=== PATIENT | male | born 1950 | race Hispanic/Latino ===

== ENCOUNTER 2017-01-18 16:25 | Emergency (ER) | payer MEDICARE ==
--- NOTE | 2017-01-18 19:24 | Emergency Department Report ---
ED Lower Extremity HPI - General Chief Complaint: Extremity Injury, Lower Stated Complaint: BLLOD CLOT Time Seen by Provider: 01/18/17 16:58 Source: patient, EMS Mode of arrival: Stretcher Limitations: Physical Limitation - History of Present Illness Initial Comments: Patient is a 66 yr old male who presents to the ED with RLE pain and LLE anterior cellulitis. Pt reports his leg started to hurt for the past few days and he was concerned for a blood clot. Associated LLE cellulitis with mulitiple lesions. Otherwise no fevers, chills, ROMERO, NVD, SOB, hemoptysis, CP, travel, trauma, or sick contacts. MD Complaint: other (R leg calf pain, cellulitis to the left leg) -: Gradual Severity: mild Worsens With: movement - Related Data Home Medications Medication Instructions Recorded Confirmed Last Taken Pravastatin Sodium [Pravastatin] 40 mg PO DAILY 11/08/13 01/18/17 07/05/16 metFORMIN [Glucophage] 500 mg PO BID 11/08/13 01/18/17 07/05/16 Insulin Glargine [Lantus VIAL] 25 unit SUB-Q HS 09/10/16 01/18/17 Unknown Insulin Lispro [HumaLOG VIAL] 0 units SUB-Q TIDAC 09/10/16 01/18/17 Unknown Escitalopram [Lexapro] 10 mg PO DAILY 01/18/17 01/18/17 Unknown busPIRone [Buspar] 10 mg PO BID 01/18/17 01/18/17 Unknown clonazePAM [KlonoPIN] 0.5 mg PO BID PRN 01/18/17 01/18/17 Unknown traZODone [Desyrel] 50 mg PO QHS 01/18/17 01/18/17 Unknown Previous Rx's Medication Instructions Recorded Last Taken Type Sulfamethoxazole/Trimethoprim 1 each PO BID #20 tablet 01/18/17 Unknown Rx [Bactrim DS TAB] Allergies Allergy/AdvReac Type Severity Reaction Status Date / Time vancomycin Allergy Rash Verified 06/27/15 13:20 ED Review of Systems ROS: Stated complaint: BLLOD CLOT Other details as noted in HPI ED Past Medical Hx - Past Medical History Hx Hypertension: Yes Hx CVA: Yes (noted on CAT scan, TIA) Hx Congestive Heart Failure: Yes Hx Diabetes: Yes Hx GERD: Yes Hx Arthritis: Yes Hx Psychiatric Treatment: Yes (depression,anxiety) - Surgical History Hx Open Heart Surgery: No Hx Cholecystectomy: Yes Additional Surgical History: Shoulder surgery; pace maker October 2014 - Social History Smoking Status: Never Smoker Substance Use Type: None - Medications Home Medications: Home Medications Medication Instructions Recorded Confirmed Last Taken Type Pravastatin Sodium [Pravastatin] 40 mg PO DAILY 11/08/13 01/18/17 07/05/16 History metFORMIN [Glucophage] 500 mg PO BID 11/08/13 01/18/17 07/05/16 History Insulin Glargine [Lantus VIAL] 25 unit SUB-Q HS 09/10/16 01/18/17 Unknown History Insulin Lispro [HumaLOG VIAL] 0 units SUB-Q TIDAC 09/10/16 01/18/17 Unknown History Escitalopram [Lexapro] 10 mg PO DAILY 01/18/17 01/18/17 Unknown History Sulfamethoxazole/Trimethoprim 1 each PO BID #20 tablet 01/18/17 Unknown Rx [Bactrim DS TAB] busPIRone [Buspar] 10 mg PO BID 01/18/17 01/18/17 Unknown History clonazePAM [KlonoPIN] 0.5 mg PO BID PRN 01/18/17 01/18/17 Unknown History traZODone [Desyrel] 50 mg PO QHS 01/18/17 01/18/17 Unknown History ED Physical Exam - General Limitations: Physical Limitation General appearance: alert, in no apparent distress - Head Head exam: Present: atraumatic, normocephalic - Eye Eye exam: Present: normal appearance - ENT ENT exam: Present: mucous membranes moist - Neck Neck exam: Present: normal inspection - Respiratory Respiratory exam: Present: normal lung sounds bilaterally. Absent: respiratory distress - Cardiovascular Cardiovascular Exam: Present: regular rate, normal rhythm. Absent: systolic murmur, diastolic murmur, rubs, gallop - GI/Abdominal GI/Abdominal exam: Present: soft, normal bowel sounds - Rectal Rectal exam: Present: deferred - Extremities Exam Extremities exam: Present: normal inspection, tenderness, calf tenderness ( right calf tenderness) - Expanded Lower Extremity Exam Left Hip exam: Present: full ROM. Absent: tenderness Upper Leg exam: Present: normal inspection, full ROM. Absent: tenderness Knee exam: Present: normal inspection, full ROM. Absent: tenderness, swelling Lower Leg exam: Present: full ROM, erythema (Excoriations, warm to touch). Absent: tenderness Ankle exam: Present: normal inspection, full ROM Foot/Toe exam: Present: normal inspection, full ROM Neuro vascular tendon exam: Present: no vascular compromise. Absent: pulse deficit - Neurological Exam Neurological exam: Present: alert, oriented X3 - Skin Skin exam: Present: warm, dry, other (as noted in extremity exam) ED Course Vital Signs 01/18/17 01/18/17 01/18/17 16:41 17:16 17:20 Temperature 98.0 F Pulse Rate 73 Respiratory 18 Rate Blood Pressure 150/81 Blood Pressure 151/70 [Right] O2 Sat by Pulse 100 86 98 Oximetry 01/18/17 01/18/17 01/18/17 17:30 17:40 19:50 Temperature 98 F Pulse Rate 86 Respiratory 18 Rate Blood Pressure 150/81 Blood Pressure 156/75 [Right] O2 Sat by Pulse 82 L 98 97 Oximetry ED Lower Extremity MDM - Radiology Data Radiology results: report reviewed No DVT of the RLE Critical care attestation.: If time is entered above; I have spent that time in minutes in the direct care of this critically ill patient, excluding procedure time. ED Disposition Clinical Impression: Leg pain, Cellulitis, leg Disposition: DISCHARGED TO HOME OR SELFCARE Is pt being admited?: No Does the pt Need Aspirin: No Condition: Stable Instructions: Cellulitis (ED), Arthralgia (ED) Prescriptions: Sulfamethoxazole/Trimethoprim [Bactrim DS TAB] 1 each PO BID #20 tablet Referrals: PRIMARY CARE, [Primary Care Provider] - 3-5 Days Forms: Accompanied Note
[2017-01-18 20:25] VITALS: BP 156/75
--- NOTE | 2017-01-20 08:18 | Vascular Lab Report ---
Right Lower Extremity Venous Duplex Study: Reason for Exam: Right leg swelling. Comments on the Right: All veins visualized are freely compressible without evidence of internal echogenicity. Flow is spontaneous and phasic throughout. No evidence of acute or chronic thrombus is seen in any of the vessels visualized. Varicosities noted in the right lower portion of the lag Comments on the Left: A limited duplex study was done of the proximal veins of the left lower extremity. All veins visualized are freely compressible without evidence of internal echogenicity. Flow is spontaneous and phasic throughout. No evidence of acute or chronic thrombus is seen in any of the vessels visualized. Impression: No evidence of acute or chronic deep venous thrombosis in the right lower extremity right leg varicose veins. Consider workup for venous insufficiency..
== END 2017-01-18 20:05 | disposition home or self-care (01) ==
LOC: ED 16:25
DX: L03.116 Cellulitis of left lower limb (principal); M79.661 Pain in right lower leg; I10 Essential (primary) hypertension; I63.9 Cerebral infarction, unspecified; I50.9 Heart failure, unspecified; E11.9 Type 2 diabetes mellitus without complications; K21.9 Gastro-esophageal reflux disease without esophagitis; M19.90 Unspecified osteoarthritis, unspecified site; F41.9 Anxiety disorder, unspecified; F32.9 Major depressive disorder, single episode, unspecified; Z79.4 Long term (current) use of insulin; Z88.1 Allergy status to other antibiotic agents

== ENCOUNTER 2017-03-15 12:15 | Emergency (ER) | payer MEDICARE ==
[2017-03-15] MEDS ORDERED: NACL 0.9% 1000 ML 1,000 ML IV ONE (12:48)
[2017-03-15 13:48] LABS: Basophils % (Auto) 0.6 % (0.0-1.8); Eosinophils % (Auto) 0.5 % (0.0-4.3); Hematocrit 38.6 % (35.5-45.6); Hemoglobin 12.3 gm/dl (11.8-15.2); Mean Corpuscular HGB Conc 32 % (32-34); Mean Corpuscular Volume 80 fl (84-94); Platelet Count 316 K/mm3 (140-440); Red Blood Count 4.82 M/mm3 (3.65-5.03); Red Cell Distribution Width 16.9 % (13.2-15.2); White Blood Count 11.3 K/mm3 (4.5-11.0)
[2017-03-15 13:51] LABS: Alanine Aminotransferase 10 units/L (7-56); Albumin 3.9 g/dL (3.9-5); Albumin/Globulin Ratio 1.2 %; Alkaline Phosphatase 76 units/L (35-129); Anion Gap 17 mmol/L; BUN/Creatinine Ratio 11.11; Blood Urea Nitrogen 10 mg/dL (9-20); Calcium 8.9 mg/dL (8.4-10.2); Carbon Dioxide 28 mmol/L (22-30); Chloride 95.9 mmol/L (98-107); Glucose 149 mg/dL (75-100); Lipase 101 units/L (13-60); Potassium 3.3 mmol/L (3.6-5.0); Sodium 138 mmol/L (137-145); Total Protein 7.1 g/dL (6.3-8.2)
[2017-03-15 14:16] LABS: INR 1.16 (0.87-1.13)
[2017-03-15 14:17] LABS: Partial Thromboplastin Time 31.5 Sec. (24.2-36.6)
[2017-03-15 14:18] LABS: Mean Corpuscular Hemoglobin 26 pg (28-32)
[2017-03-15 16:03] VITALS: BP 144/81
--- NOTE | 2017-03-15 16:31 | Emergency Department Report ---
ED N/V/D HPI - General Chief complaint: Nausea/Vomiting/Diarrhea Stated complaint: Poss GI Bleed Time Seen by Provider: 03/15/17 15:30 Source: patient Mode of arrival: Ambulatory Limitations: Physical Limitation - History of Present Illness Initial comments: Patient comes in the ER today with complaints of abdominal pain and diarrhea for the past 2-3 weeks. Patient states that he was seen here not long ago and started on Protonix for blood in his stool. The patient states that he has not had any blood in his stool since that time but he continues to have some diarrhea. Patient does state that when he eats the pain seems to get a little bit worse. Patient denies any vomiting. Patient denies any fevers, cough, body aches. Patient does state that occasionally when he tries to void, he feels like he has to have a bowel movement as well. MD complaint: diarrhea - Related Data Home Medications Medication Instructions Recorded Confirmed Last Taken Insulin Glargine [Lantus VIAL] 25 unit SUB-Q HS 09/10/16 02/24/17 Unknown Insulin Lispro [HumaLOG VIAL] 0 units SUB-Q TIDAC 09/10/16 02/24/17 Unknown Escitalopram Oxalate [Lexapro] 1 tab PO QDAY 02/24/17 02/24/17 Unknown Furosemide [Lasix TAB] 20 mg PO QDAY 02/24/17 02/24/17 Unknown Furosemide [Lasix TAB] 20 mg PO QDAY 02/24/17 02/24/17 Unknown Previous Rx's Medication Instructions Recorded Last Taken Type Apixaban [Eliquis] 2.5 mg PO Q12HR #60 tablet 02/27/17 Unknown Rx Aspirin [Adult Low Dose Aspirin EC] 81 mg PO QDAY #30 tablet. 02/27/17 Unknown Rx Carvedilol [Coreg] 25 mg PO BID #60 tablet 02/27/17 Unknown Rx Escitalopram [Lexapro] 20 mg PO DAILY #30 tablet 02/27/17 Unknown Rx Insulin Detemir [Levemir] 25 units SUB-Q QHS #30 units 02/27/17 Unknown Rx Pantoprazole [Protonix TAB] 40 mg PO BID #60 tablet 02/27/17 Unknown Rx Pravastatin Sodium [Pravastatin] 40 mg PO DAILY #30 tablet 02/27/17 Unknown Rx amLODIPine/VALSARTAN [Exforge 1 tab PO QDAY #30 tablet 02/27/17 Unknown Rx 5-160 mg Tablet] busPIRone [Buspar] 10 mg PO TID #90 tablet 02/27/17 Unknown Rx cloNIDine-TTS PATCH [Catapres-Tts 0.2 mg TD We #4 patch 02/27/17 Unknown Rx Patch] clonazePAM [KlonoPIN] 0.5 mg PO BID PRN #60 tablet 02/27/17 Unknown Rx metFORMIN [Glucophage] 500 mg PO BID #60 tablet 02/27/17 Unknown Rx traZODone [Desyrel] 50 mg PO QHS #30 tablet 02/27/17 Unknown Rx Cholestyramine (with Sugar) 4 gm PO QID PRN #40 packet 03/15/17 Unknown Rx [Questran] Ciprofloxacin HCl [Ciprofloxacin 500 mg PO Q12HR #20 tab 03/15/17 Unknown Rx TAB] metroNIDAZOLE [Flagyl] 500 mg PO QID #40 tablet 03/15/17 Unknown Rx Allergies Allergy/AdvReac Type Severity Reaction Status Date / Time vancomycin Allergy Shortness Verified 02/24/17 11:57 of Breath ED Review of Systems ROS: Stated complaint: Poss GI Bleed Other details as noted in HPI Constitutional: denies: chills, fever Eyes: denies: eye pain, eye discharge, vision change ENT: denies: ear pain, throat pain Respiratory: denies: cough, shortness of breath, wheezing Cardiovascular: denies: chest pain, palpitations Endocrine: no symptoms reported Gastrointestinal: abdominal pain, diarrhea. denies: nausea, vomiting, constipation, hematemesis, melena, hematochezia Genitourinary: denies: urgency, dysuria Musculoskeletal: denies: back pain, joint swelling, arthralgia Skin: denies: rash, lesions Neurological: denies: headache, weakness, paresthesias Psychiatric: denies: anxiety, depression Hematological/Lymphatic: denies: easy bleeding, easy bruising ED Past Medical Hx - Past Medical History Previous Medical History?: Yes Hx Hypertension: Yes Hx CVA: Yes (noted on CAT scan, TIA) Hx Congestive Heart Failure: Yes Hx Diabetes: Yes Hx GERD: Yes Hx Arthritis: Yes Hx Psychiatric Treatment: Yes (depression,anxiety) - Surgical History Past Surgical History?: Yes Hx Open Heart Surgery: No Hx Pacemaker: Yes Hx Cholecystectomy: Yes Additional Surgical History: Shoulder surgery; pace maker October 2014 - Social History Smoking Status: Former Smoker Substance Use Type: Prescribed - Medications Home Medications: Home Medications Medication Instructions Recorded Confirmed Last Taken Type Insulin Glargine [Lantus VIAL] 25 unit SUB-Q HS 09/10/16 02/24/17 Unknown History Insulin Lispro [HumaLOG VIAL] 0 units SUB-Q TIDAC 09/10/16 02/24/17 Unknown History Escitalopram Oxalate [Lexapro] 1 tab PO QDAY 02/24/17 02/24/17 Unknown History Furosemide [Lasix TAB] 20 mg PO QDAY 02/24/17 02/24/17 Unknown History Furosemide [Lasix TAB] 20 mg PO QDAY 02/24/17 02/24/17 Unknown History Apixaban [Eliquis] 2.5 mg PO Q12HR #60 tablet 02/27/17 Unknown Rx Aspirin [Adult Low Dose Aspirin EC] 81 mg PO QDAY #30 tablet. 02/27/17 Unknown Rx Carvedilol [Coreg] 25 mg PO BID #60 tablet 02/27/17 Unknown Rx Escitalopram [Lexapro] 20 mg PO DAILY #30 tablet 02/27/17 Unknown Rx Insulin Detemir [Levemir] 25 units SUB-Q QHS #30 units 02/27/17 Unknown Rx Pantoprazole [Protonix TAB] 40 mg PO BID #60 tablet 02/27/17 Unknown Rx Pravastatin Sodium [Pravastatin] 40 mg PO DAILY #30 tablet 02/27/17 Unknown Rx amLODIPine/VALSARTAN [Exforge 1 tab PO QDAY #30 tablet 02/27/17 Unknown Rx 5-160 mg Tablet] busPIRone [Buspar] 10 mg PO TID #90 tablet 02/27/17 Unknown Rx cloNIDine-TTS PATCH [Catapres-Tts 0.2 mg TD We #4 patch 02/27/17 Unknown Rx Patch] clonazePAM [KlonoPIN] 0.5 mg PO BID PRN #60 tablet 02/27/17 Unknown Rx metFORMIN [Glucophage] 500 mg PO BID #60 tablet 02/27/17 Unknown Rx traZODone [Desyrel] 50 mg PO QHS #30 tablet 02/27/17 Unknown Rx Cholestyramine (with Sugar) 4 gm PO QID PRN #40 packet 03/15/17 Unknown Rx [Questran] Ciprofloxacin HCl [Ciprofloxacin 500 mg PO Q12HR #20 tab 03/15/17 Unknown Rx TAB] metroNIDAZOLE [Flagyl] 500 mg PO QID #40 tablet 03/15/17 Unknown Rx ED Physical Exam - General Limitations: Physical Limitation General appearance: alert, in no apparent distress - Head Head exam: Present: atraumatic, normocephalic - Eye Eye exam: Present: normal appearance - ENT ENT exam: Present: mucous membranes moist - Neck Neck exam: Present: normal inspection - Respiratory Respiratory exam: Present: normal lung sounds bilaterally. Absent: respiratory distress - Cardiovascular Cardiovascular Exam: Present: regular rate, normal rhythm. Absent: systolic murmur, diastolic murmur, rubs, gallop - GI/Abdominal GI/Abdominal exam: Present: soft, tenderness (left upper and lower quadrant), normal bowel sounds, other (truncal obesity). Absent: distended, guarding, rebound - Rectal Rectal exam: Present: deferred - Extremities Exam Extremities exam: Present: normal inspection - Back Exam Back exam: Present: normal inspection - Neurological Exam Neurological exam: Present: alert, oriented X3, CN II-XII intact - Psychiatric Psychiatric exam: Present: normal affect, normal mood - Skin Skin exam: Present: warm, dry, intact, normal color. Absent: rash ED Course Vital Signs 03/15/17 03/15/17 03/15/17 12:43 16:02 16:03 Temperature 98.2 F 98.4 F Pulse Rate 82 83 Respiratory 20 12 13 Rate Blood Pressure 137/82 Blood Pressure 144/81 [Left] O2 Sat by Pulse 97 97 97 Oximetry ED Medical Decision Making - Lab Data Result diagrams: 03/15/17 13:13 03/15/17 13:13 Lab Results 03/15/17 03/15/17 03/15/17 Range/Units 13:11 13:13 13:13 WBC 11.3 H (4.5-11.0) K/mm3 RBC 4.82 (3.65-5.03) M/mm3 Hgb 12.3 (11.8-15.2) gm/dl Hct 38.6 (35.5-45.6) % MCV 80 L (84-94) fl MCH 26 L (28-32) pg MCHC 32 (32-34) % RDW 16.9 H (13.2-15.2) % Plt Count 316 (140-440) K/mm3 Lymph % (Auto) 15.3 (13.4-35.0) % Conway % (Auto) 9.2 H (0.0-7.3) % Eos % (Auto) 0.5 (0.0-4.3) % Baso % (Auto) 0.6 (0.0-1.8) % Lymph # 1.7 (1.2-5.4) K/mm3 Conway # 1.0 H (0.0-0.8) K/mm3 Eos # 0.1 (0.0-0.4) K/mm3 Baso # 0.1 (0.0-0.1) K/mm3 Seg Neutrophils % 74.4 H (40.0-70.0) % Seg Neutrophils # 8.4 H (1.8-7.7) K/mm3 PT 14.7 (12.2-14.9) Sec. INR 1.16 H (0.87-1.13) APTT 31.5 (24.2-36.6) Sec. Sodium (137-145) mmol/L Potassium (3.6-5.0) mmol/L Chloride (98-107) mmol/L Carbon Dioxide (22-30) mmol/L Anion Gap mmol/L BUN (9-20) mg/dL Creatinine (0.8-1.5) mg/dL Estimated GFR ml/min BUN/Creatinine Ratio % Glucose (75-100) mg/dL Calcium (8.4-10.2) mg/dL Total Bilirubin (0.1-1.2) mg/dL AST (5-40) units/L ALT (7-56) units/L Alkaline Phosphatase (35-129) units/L Total Protein (6.3-8.2) g/dL Albumin (3.9-5) g/dL Albumin/Globulin Ratio % Lipase (13-60) units/L Blood Type A NEGATIVE Antibody Screen TNR DEBBIE Antibody Screen Negative 03/15/17 Range/Units 13:13 WBC (4.5-11.0) K/mm3 RBC (3.65-5.03) M/mm3 Hgb (11.8-15.2) gm/dl Hct (35.5-45.6) % MCV (84-94) fl MCH (28-32) pg MCHC (32-34) % RDW (13.2-15.2) % Plt Count (140-440) K/mm3 Lymph % (Auto) (13.4-35.0) % Conway % (Auto) (0.0-7.3) % Eos % (Auto) (0.0-4.3) % Baso % (Auto) (0.0-1.8) % Lymph # (1.2-5.4) K/mm3 Conway # (0.0-0.8) K/mm3 Eos # (0.0-0.4) K/mm3 Baso # (0.0-0.1) K/mm3 Seg Neutrophils % (40.0-70.0) % Seg Neutrophils # (1.8-7.7) K/mm3 PT (12.2-14.9) Sec. INR (0.87-1.13) APTT (24.2-36.6) Sec. Sodium 138 (137-145) mmol/L Potassium 3.3 L (3.6-5.0) mmol/L Chloride 95.9 L (98-107) mmol/L Carbon Dioxide 28 (22-30) mmol/L Anion Gap 17 mmol/L BUN 10 (9-20) mg/dL Creatinine 0.9 (0.8-1.5) mg/dL Estimated GFR > 60 ml/min BUN/Creatinine Ratio 11.11 % Glucose 149 H (75-100) mg/dL Calcium 8.9 (8.4-10.2) mg/dL Total Bilirubin 0.60 (0.1-1.2) mg/dL AST 13 (5-40) units/L ALT 10 (7-56) units/L Alkaline Phosphatase 76 (35-129) units/L Total Protein 7.1 (6.3-8.2) g/dL Albumin 3.9 (3.9-5) g/dL Albumin/Globulin Ratio 1.2 % Lipase 101 H (13-60) units/L Blood Type Antibody Screen DEBBIE Antibody Screen - Radiology Data Radiology results: report reviewed Radiologist's interpretation of CT of the abdomen and pelvis without contrast: Acute diverticulitis along mid-to distal descending colon and proximal to mid sigmoid without perforation or abscess. Grossly unremarkable unenhanced liver, spleen, pancreas, adrenals, non-aneurysmal abdominal aorta with atherosclerotic calcifications. Normal appendix and no ascites or size significant adenopathy. - Medical Decision Making Patient is nontoxic and hemodynamically stable. Lab results as well as CT imaging reviewed and discussed the patient room. I informed patient that we will start him on medications appropriately for acute diverticulitis. I will also prescribe him some Questran to help with the diarrhea. However encouraged patient to follow up with his inspector screen printing to recheck labs and ensure resolution of symptoms. Patient is in agreement with treatment plan and patient is stable for discharge. Critical care attestation.: If time is entered above; I have spent that time in minutes in the direct care of this critically ill patient, excluding procedure time. ED Disposition Clinical Impression: Diarrhea, Acute diverticulitis Disposition: DISCHARGED TO HOME OR SELFCARE Is pt being admited?: No Does the pt Need Aspirin: No Condition: Good Instructions: Diverticulitis (ED), Diverticulitis Diet (ED) Prescriptions: Cholestyramine (with Sugar) [Questran] 4 gm PO QID PRN #40 packet PRN Reason: Diarrhea Ciprofloxacin HCl [Ciprofloxacin TAB] 500 mg PO Q12HR #20 tab metroNIDAZOLE [Flagyl] 500 mg PO QID #40 tablet Referrals: ROBERT ARMENTA MD [Primary Care Provider] - 3-5 Days inspector screen printing, your [Other] - 3-5 Days Time of Disposition: 17:02
--- NOTE | 2017-03-15 16:34 | Cat Scan Report ---
CT ABDOMEN AND PELVIS WITHOUT CONTRAST INDICATION: Abdominal pain, diarrhea. COMPARISON: None similar. FINDINGS: Noncontrast abdomen and pelvis CT performed. LUNG BASES: Top normal heart size. Cardiac pacemaker lead artifacts. Coronary calcifications. Right hemidiaphragm mildly elevated. Slight distal esophageal prominence. ABDOMEN: Please note that sensitivity to detect small visceral lesions is limited due to the absence of intravenous or oral contrast. Cholecystectomy clips. Grossly unremarkable unenhanced liver, spleen, pancreas, adrenals, nonaneurysmal abdominal aorta with atherosclerotic aortoiliac calcifications, IVC and non-hydronephrotic kidneys. No ascites or size significant adenopathy. Nonopacified GI tract evaluation limited, though grossly nonobstructive. Normal appendix. Usual colonic stool. Numerous diverticula noted from about the mid descending colon to the mid sigmoid with surrounding fat stranding along this extent. PELVIS: Rectosigmoid liquid stool. Small prostatic calcifications. Otherwise grossly unremarkable unenhanced urinary bladder, seminal vesicles and the prostate. No free fluid or significant adenopathy. Small bilateral fat-containing inguinal hernias measuring 2 cm. Demineralized bones with multilevel spinal degenerative changes, including spurring, Schmorl's nodes and disc degeneration. Bilateral hip degenerative changes as well. CONCLUSION: 1. Acute diverticulitis along mid to distal descending colon and proximal to mid sigmoid without perforation or abscess, as described. 2. Other incidental findings, including cardiac pacemaker and cholecystectomy, amongst others, as above. Thank you for the opportunity to participate in this patient's care.
== END 2017-03-15 17:29 | disposition home or self-care (01) ==
LOC: ED 12:15
DX: K57.92 Diverticulitis of intestine, part unspecified, without perforation or abscess without bleeding (principal); R19.7 Diarrhea, unspecified; I10 Essential (primary) hypertension; I63.9 Cerebral infarction, unspecified; I50.9 Heart failure, unspecified; E11.9 Type 2 diabetes mellitus without complications; K21.9 Gastro-esophageal reflux disease without esophagitis; M19.90 Unspecified osteoarthritis, unspecified site; Z87.891 Personal history of nicotine dependence; Z79.4 Long term (current) use of insulin; Z79.82 Long term (current) use of aspirin; Z88.1 Allergy status to other antibiotic agents
CPT/HCPCS: 36415; 74176; 80053; 83690; 85025; 85610; 85730; 86850; 86900; 86901; 93005; 93010

== ENCOUNTER 2017-05-24 12:57 | Emergency (ER) | payer MEDICARE ==
[2017-05-24 13:10] VITALS: BP 168/86
[2017-05-24 16:33] LABS: Basophils % (Auto) 0.8 % (0.0-1.8); Eosinophils % (Auto) 1.7 % (0.0-4.3); Hematocrit 39.5 % (35.5-45.6); Mean Corpuscular HGB Conc 33 % (32-34); Mean Corpuscular Hemoglobin 26 pg (28-32); Mean Corpuscular Volume 79 fl (84-94); Platelet Count 232 K/mm3 (140-440); Red Blood Count 4.98 M/mm3 (3.65-5.03); Red Cell Distribution Width 17.3 % (13.2-15.2); White Blood Count 8.7 K/mm3 (4.5-11.0)
--- NOTE | 2017-05-24 16:36 | Emergency Department Report ---
ED Extremity Problem HPI - General Chief complaint: Medical Clearance Stated complaint: MEDICAL CLEARENCE Time Seen by Provider: 05/24/17 15:20 Source: patient, EMS Mode of arrival: Stretcher Limitations: Physical Limitation - History of Present Illness Initial comments: 66-year-old male past medical history recurrent cellulitis right lower extremity CHF hypertension, diabetes DMt2, history of CVA, GERD presents with complaint of right lower extremity pain and swelling. Patient states that he was sent from an current hospital for medical clearance for possible cellulitis of right lower extremity MD Complaint: extremity pain, extremity swelling - Related Data Home Medications Medication Instructions Recorded Confirmed Last Taken Insulin Glargine [Lantus VIAL] 25 unit SUB-Q HS 09/10/16 02/24/17 Unknown Insulin Lispro [HumaLOG VIAL] 0 units SUB-Q TIDAC 09/10/16 02/24/17 Unknown Escitalopram Oxalate [Lexapro] 1 tab PO QDAY 02/24/17 02/24/17 Unknown Furosemide [Lasix TAB] 20 mg PO QDAY 02/24/17 02/24/17 Unknown Furosemide [Lasix TAB] 20 mg PO QDAY 02/24/17 02/24/17 Unknown Previous Rx's Medication Instructions Recorded Last Taken Type Apixaban [Eliquis] 2.5 mg PO Q12HR #60 tablet 02/27/17 Unknown Rx Aspirin [Adult Low Dose Aspirin EC] 81 mg PO QDAY #30 tablet. 02/27/17 Unknown Rx Carvedilol [Coreg] 25 mg PO BID #60 tablet 02/27/17 Unknown Rx Escitalopram [Lexapro] 20 mg PO DAILY #30 tablet 02/27/17 Unknown Rx Insulin Detemir [Levemir] 25 units SUB-Q QHS #30 units 02/27/17 Unknown Rx Pantoprazole [Protonix TAB] 40 mg PO BID #60 tablet 02/27/17 Unknown Rx Pravastatin Sodium [Pravastatin] 40 mg PO DAILY #30 tablet 02/27/17 Unknown Rx amLODIPine/VALSARTAN [Exforge 1 tab PO QDAY #30 tablet 02/27/17 Unknown Rx 5-160 mg Tablet] busPIRone [Buspar] 10 mg PO TID #90 tablet 02/27/17 Unknown Rx cloNIDine-TTS PATCH [Catapres-Tts 0.2 mg TD We #4 patch 02/27/17 Unknown Rx Patch] clonazePAM [KlonoPIN] 0.5 mg PO BID PRN #60 tablet 02/27/17 Unknown Rx metFORMIN [Glucophage] 500 mg PO BID #60 tablet 02/27/17 Unknown Rx traZODone [Desyrel] 50 mg PO QHS #30 tablet 02/27/17 Unknown Rx Cholestyramine (with Sugar) 4 gm PO QID PRN #40 packet 03/15/17 Unknown Rx [Questran] Ciprofloxacin HCl [Ciprofloxacin 500 mg PO Q12HR #20 tab 03/15/17 Unknown Rx TAB] metroNIDAZOLE [Flagyl] 500 mg PO QID #40 tablet 03/15/17 Unknown Rx Clindamycin [Clindamycin CAP] 300 mg PO Q6H #28 capsule 05/24/17 Unknown Rx Compression Socks, Medium [Futuro 1 each MC QDAY #1 pack 05/24/17 Unknown Rx Restoring] Allergies Allergy/AdvReac Type Severity Reaction Status Date / Time vancomycin Allergy Shortness Verified 05/24/17 13:06 of Breath ED Review of Systems ROS: Stated complaint: MEDICAL CLEARENCE Other details as noted in HPI ED Past Medical Hx - Past Medical History Hx Hypertension: Yes Hx CVA: Yes (noted on CAT scan, TIA) Hx Congestive Heart Failure: Yes Hx Diabetes: Yes Hx GERD: Yes Hx Arthritis: Yes Hx Psychiatric Treatment: Yes (depression,anxiety) - Surgical History Hx Open Heart Surgery: No Hx Pacemaker: Yes Hx Cholecystectomy: Yes Additional Surgical History: Shoulder surgery; pace maker October 2014 - Social History Smoking Status: Never Smoker Substance Use Type: None - Medications Home Medications: Home Medications Medication Instructions Recorded Confirmed Last Taken Type Insulin Glargine [Lantus VIAL] 25 unit SUB-Q HS 09/10/16 02/24/17 Unknown History Insulin Lispro [HumaLOG VIAL] 0 units SUB-Q TIDAC 09/10/16 02/24/17 Unknown History Escitalopram Oxalate [Lexapro] 1 tab PO QDAY 02/24/17 02/24/17 Unknown History Furosemide [Lasix TAB] 20 mg PO QDAY 02/24/17 02/24/17 Unknown History Furosemide [Lasix TAB] 20 mg PO QDAY 02/24/17 02/24/17 Unknown History Apixaban [Eliquis] 2.5 mg PO Q12HR #60 tablet 02/27/17 Unknown Rx Aspirin [Adult Low Dose Aspirin EC] 81 mg PO QDAY #30 tablet. 02/27/17 Unknown Rx Carvedilol [Coreg] 25 mg PO BID #60 tablet 02/27/17 Unknown Rx Escitalopram [Lexapro] 20 mg PO DAILY #30 tablet 02/27/17 Unknown Rx Insulin Detemir [Levemir] 25 units SUB-Q QHS #30 units 02/27/17 Unknown Rx Pantoprazole [Protonix TAB] 40 mg PO BID #60 tablet 02/27/17 Unknown Rx Pravastatin Sodium [Pravastatin] 40 mg PO DAILY #30 tablet 02/27/17 Unknown Rx amLODIPine/VALSARTAN [Exforge 1 tab PO QDAY #30 tablet 02/27/17 Unknown Rx 5-160 mg Tablet] busPIRone [Buspar] 10 mg PO TID #90 tablet 02/27/17 Unknown Rx cloNIDine-TTS PATCH [Catapres-Tts 0.2 mg TD We #4 patch 02/27/17 Unknown Rx Patch] clonazePAM [KlonoPIN] 0.5 mg PO BID PRN #60 tablet 02/27/17 Unknown Rx metFORMIN [Glucophage] 500 mg PO BID #60 tablet 02/27/17 Unknown Rx traZODone [Desyrel] 50 mg PO QHS #30 tablet 02/27/17 Unknown Rx Cholestyramine (with Sugar) 4 gm PO QID PRN #40 packet 03/15/17 Unknown Rx [Questran] Ciprofloxacin HCl [Ciprofloxacin 500 mg PO Q12HR #20 tab 03/15/17 Unknown Rx TAB] metroNIDAZOLE [Flagyl] 500 mg PO QID #40 tablet 03/15/17 Unknown Rx Clindamycin [Clindamycin CAP] 300 mg PO Q6H #28 capsule 05/24/17 Unknown Rx Compression Socks, Medium [Futuro 1 each MC QDAY #1 pack 05/24/17 Unknown Rx Restoring] ED Physical Exam - General Limitations: Physical Limitation General appearance: alert, in no apparent distress - Head Head exam: Present: atraumatic, normocephalic - Eye Eye exam: Present: normal appearance, PERRL, EOMI - ENT ENT exam: Present: mucous membranes moist - Neck Neck exam: Present: normal inspection, full ROM - Respiratory Respiratory exam: Present: normal lung sounds bilaterally. Absent: respiratory distress - Cardiovascular Cardiovascular Exam: Present: regular rate, normal rhythm. Absent: systolic murmur, diastolic murmur, rubs, gallop - GI/Abdominal GI/Abdominal exam: Present: soft, normal bowel sounds - Rectal Rectal exam: Present: deferred - Extremities Exam Extremities exam: Present: normal inspection, full ROM - Back Exam Back exam: Present: normal inspection - Neurological Exam Neurological exam: Present: alert, oriented X3, CN II-XII intact, normal gait - Psychiatric Psychiatric exam: Present: normal affect, normal mood - Skin Skin exam: Present: warm, dry, intact, normal color. Absent: rash ED Course Vital Signs 05/24/17 13:06 Temperature 98.4 F Pulse Rate 70 Respiratory 18 Rate Blood Pressure 168/86 O2 Sat by Pulse 100 Oximetry ED Medical Decision Making - Lab Data Result diagrams: 05/24/17 16:06 05/24/17 16:06 - Medical Decision Making A/P: Right lower extremity cellulitis, venous stasis dermatitis 1-labs unremarkable, venous duplex shows no DVT, bedside arterial doppler pt has strong dorsalis pedis and posterior tibial pulses, strong to palpation 2-case discussed with Dr. Salazar 3-will place patient on course of clindamycin 300mg 4 times a day 7 days 4-borders of cellulitis marked. I advised patient to return to the ED in 48-72 hours if he experiences fevers chills worsened or progressive erythema of leg beyond the marked borders. She stated that he understood my instructions Critical care attestation.: If time is entered above; I have spent that time in minutes in the direct care of this critically ill patient, excluding procedure time. ED Disposition Clinical Impression: Cellulitis of right lower extremity, Venous stasis dermatitis of right lower extremity Disposition: DC-01 TO HOME OR SELFCARE Is pt being admited?: No Does the pt Need Aspirin: No Condition: Stable Instructions: Cellulitis (ED), Peripheral Vascular Disorders (ED) Additional Instructions: Patient can return to [place] facility must take antibiotics and patient given precautions to return to the ED if cellulitis worsens despite use of antibiotics or if he develops fevers and chills. Prescriptions: Clindamycin [Clindamycin CAP] 300 mg PO Q6H #28 capsule Compression Socks, Medium [Futuro Restoring] 1 each MC QDAY #1 pack Referrals: COLLEEN HAQ MD [Staff Physician] - 3-5 Days Time of Disposition: 18:47
[2017-05-24 16:38] LABS: Alanine Aminotransferase 13 units/L (7-56); Albumin/Globulin Ratio 1.1 %; Alkaline Phosphatase 82 units/L (35-129); Total Protein 7.5 g/dL (6.3-8.2)
[2017-05-24 16:41] LABS: Bilirubin,Direct < 0.2 mg/dL (0-0.2); Bilirubin,Indirect 0.6 mg/dL
[2017-05-24 16:42] LABS: Anion Gap 19 mmol/L; BUN/Creatinine Ratio 18.75; Blood Urea Nitrogen 15 mg/dL (9-20); Calcium 8.7 mg/dL (8.4-10.2); Carbon Dioxide 27 mmol/L (22-30); Chloride 95.1 mmol/L (98-107); Glucose 204 mg/dL (75-100); Potassium 4.1 mmol/L (3.6-5.0); Sodium 137 mmol/L (137-145)
[2017-05-24 16:46] LABS: INR 1.06 (0.87-1.13); Partial Thromboplastin Time 37.9 Sec. (24.2-36.6)
[2017-05-24 17:01] LABS: C-Reactive Protein 1.1 mg/dL (0.00-1.30)
[2017-05-24 17:27] LABS: Erythrocyte Sedimentation Rate 12 mm/Hr (0-20)
[2017-05-24] MEDS ORDERED: CLEOCIN PO ONE (17:52)
--- NOTE | 2017-05-24 18:44 | XRay Report ---
FINAL REPORT EXAM: XR TIBIA FIBULA 2V RT HISTORY: pain and swelling OF RT TIB/FIB TECHNIQUE: AP and lateral views of the right tibia and fibula PRIORS: None. FINDINGS: There is no evidence for acute fracture or dislocation. No soft tissue swelling or radiopaque foreign bodies are seen. Bony mineralization is normal and joint spaces are maintained. Large bony spurs off the plantar and posterior aspects of the calcaneus is seen. IMPRESSION: No acute bony or soft tissue abnormality noted..
--- NOTE | 2017-05-25 16:02 | Vascular Lab Report ---
Right Lower Extremity Venous Duplex Study: Reason for Exam: Swelling of the right lower extremity. Comments on the Right: All veins visualized are freely compressible without evidence of internal echogenicity. Flow is spontaneous and phasic throughout. No evidence of acute or chronic thrombus is seen in any of the vessels visualized. Comments on the Left: A limited duplex study was done of the proximal veins of the left lower extremity. All veins visualized are freely compressible without evidence of internal echogenicity. Flow is spontaneous and phasic throughout. No evidence of acute or chronic thrombus is seen in any of the vessels visualized. Impression: No evidence of acute or chronic deep venous thrombosis in the right lower extremity.
== END 2017-05-24 19:06 | disposition home or self-care (01) ==
LOC: ED 12:57
DX: L03.115 Cellulitis of right lower limb (principal); I87.8 Other specified disorders of veins; I10 Essential (primary) hypertension; E11.9 Type 2 diabetes mellitus without complications; K21.9 Gastro-esophageal reflux disease without esophagitis; M19.90 Unspecified osteoarthritis, unspecified site; Z86.73 Personal history of transient ischemic attack (TIA), and cerebral infarction without residual deficits; Z79.4 Long term (current) use of insulin; Z88.1 Allergy status to other antibiotic agents; Z95.0 Presence of cardiac pacemaker
CPT/HCPCS: 36415; 80048; 80074; 82140; 82550; 82962; 85025; 85610; 85652; 85730; 86140; 99285

== ENCOUNTER 2017-06-16 15:01 | Emergency (ER) | payer MEDICARE ==
[2017-06-16 15:29] VITALS: BP 151/83
[2017-06-16 16:02] LABS: Basophils % (Auto) 0.9 % (0.0-1.8); Eosinophils % (Auto) 4.2 % (0.0-4.3); Hemoglobin 12.5 gm/dl (11.8-15.2); Mean Corpuscular HGB Conc 33 % (32-34); Mean Corpuscular Hemoglobin 27 pg (28-32); Mean Corpuscular Volume 81 fl (84-94); Platelet Count 233 K/mm3 (140-440); Red Blood Count 4.68 M/mm3 (3.65-5.03); Red Cell Distribution Width 17.6 % (13.2-15.2); White Blood Count 9.4 K/mm3 (4.5-11.0)
[2017-06-16 16:12] LABS: INR 1.06 (0.87-1.13); Partial Thromboplastin Time 36.5 Sec. (24.2-36.6)
== END 2017-06-16 21:45 | disposition left against medical advice (07) ==
LOC: ED 15:01
DX: R04.0 Epistaxis (principal); I50.9 Heart failure, unspecified; E11.9 Type 2 diabetes mellitus without complications; I10 Essential (primary) hypertension; K21.9 Gastro-esophageal reflux disease without esophagitis; F32.9 Major depressive disorder, single episode, unspecified; F41.9 Anxiety disorder, unspecified; Z86.73 Personal history of transient ischemic attack (TIA), and cerebral infarction without residual deficits; Z88.1 Allergy status to other antibiotic agents; Z87.891 Personal history of nicotine dependence; Z53.21 Procedure and treatment not carried out due to patient leaving prior to being seen by health care provider
CPT/HCPCS: 36415; 85025; 85610; 85730

== ENCOUNTER 2017-06-22 09:26 | Emergency (ER) | payer MEDICARE ==
--- NOTE | 2017-06-22 10:51 | Emergency Department Report ---
Chief Complaint: Allergic Reaction Stated Complaint: ALLERGIC REACTION Time Seen by Provider: 06/22/17 10:46 - HPI History of Present Illness: PT c/o itching x 1 week. PT states he is scratching so hard, he is making himself bleed. PT states he does not know what he is allergic to. PT states he did recently change his laundry detergent but he changed back and he is still itching. - ROS Review of Systems: + itching no new swelling to legs - Exam Physical Exam: obese male, steady gait. RLE with edema and erythema purpura noted to bue MSE screening note: Focused history and physical exam performed. Due to findings the following was ordered: labs ED Disposition for MSE Condition: Stable
[2017-06-22 12:14] LABS: Basophils % (Auto) 0.6 % (0.0-1.8); Eosinophils % (Auto) 5.3 % (0.0-4.3); Hematocrit 37.1 % (35.5-45.6); Hemoglobin 12.2 gm/dl (11.8-15.2); Mean Corpuscular HGB Conc 33 % (32-34); Mean Corpuscular Hemoglobin 27 pg (28-32); Mean Corpuscular Volume 81 fl (84-94); Platelet Count 265 K/mm3 (140-440); Red Blood Count 4.58 M/mm3 (3.65-5.03); Red Cell Distribution Width 17.6 % (13.2-15.2); White Blood Count 10.9 K/mm3 (4.5-11.0)
[2017-06-22 12:28] LABS: INR 1.17 (0.87-1.13)
[2017-06-22 12:29] LABS: Partial Thromboplastin Time 37.2 Sec. (24.2-36.6)
[2017-06-22 12:31] LABS: Alanine Aminotransferase 12 units/L (7-56); Albumin 3.7 g/dL (3.9-5); Albumin/Globulin Ratio 1.1 %; Alkaline Phosphatase 85 units/L (35-129); Anion Gap 17 mmol/L; BUN/Creatinine Ratio 23.75; Blood Urea Nitrogen 19 mg/dL (9-20); Calcium 8.6 mg/dL (8.4-10.2); Carbon Dioxide 27 mmol/L (22-30); Chloride 94.3 mmol/L (98-107); Glucose 175 mg/dL (75-100); Potassium 3.6 mmol/L (3.6-5.0); Sodium 135 mmol/L (137-145); Total Protein 7.2 g/dL (6.3-8.2)
[2017-06-22] MEDS ORDERED: ATARAX PO ONE (13:34)
[2017-06-22] MEDS ORDERED: PEPCID PO ONE (13:35)
[2017-06-22 16:01] VITALS: BP 160/75
[2017-06-22 16:37] LABS: Basophils % (Auto) 0.5 % (0.0-1.8); Eosinophils % (Auto) 4.7 % (0.0-4.3); Hematocrit 35.1 % (35.5-45.6); Hemoglobin 11.6 gm/dl (11.8-15.2); Mean Corpuscular HGB Conc 33 % (32-34); Mean Corpuscular Hemoglobin 27 pg (28-32); Mean Corpuscular Volume 81 fl (84-94); Platelet Count 252 K/mm3 (140-440); Red Blood Count 4.35 M/mm3 (3.65-5.03); Red Cell Distribution Width 17.4 % (13.2-15.2); White Blood Count 10.3 K/mm3 (4.5-11.0)
--- NOTE | 2017-06-22 17:47 | Emergency Department Report ---
ED Rash HPI - HPI Chief Complaint: Skin Rash Stated Complaint: ALLERGIC REACTION Time Seen by Provider: 06/22/17 10:46 Duration: reports 7 days ago. Location: Upper Extremities, Lower Extremities Suspected Cause: Unknown (history of eliquis. Reports episodes of nose bleeding as well) Rash Symptoms: Yes Itching, No Facial Swelling, No Tongue/Oral Swelling, No Breathing Difficulties, No Choking Sensation, No Wheezing/Dyspnea, No Peeling, No Blistering, No Fever, No Lightheaded, No Malaise, No Myalgias Severity: mild ED Review of Systems ROS: Stated complaint: ALLERGIC REACTION Other details as noted in HPI Constitutional: denies: chills, diaphoresis, fever, malaise, weakness Eyes: denies: eye pain, eye discharge, vision change Respiratory: denies: cough, orthopnea, shortness of breath, SOB with exertion, SOB at rest, stridor, wheezing Cardiovascular: denies: chest pain, palpitations, dyspnea on exertion, orthopnea , edema, syncope, paroxysmal nocturnal dyspnea Gastrointestinal: denies: abdominal pain, nausea, vomiting, diarrhea, constipation, hematemesis, melena, hematochezia Genitourinary: denies: urgency, dysuria, frequency Musculoskeletal: denies: back pain, joint swelling, myalgia Skin: rash Neurological: denies: headache, weakness, numbness, paresthesias, confusion, abnormal gait, vertigo Psychiatric: denies: homicidal thoughts, suicidal thoughts ED Past Medical Hx - Past Medical History Hx Hypertension: Yes Hx CVA: Yes (noted on CAT scan, TIA) Hx Congestive Heart Failure: Yes Hx Diabetes: Yes Hx GERD: Yes Hx Arthritis: Yes Hx Psychiatric Treatment: Yes (depression,anxiety) - Surgical History Hx Open Heart Surgery: No Hx Pacemaker: Yes Hx Cholecystectomy: Yes Additional Surgical History: Shoulder surgery; pace maker October 2014 - Social History Smoking Status: Never Smoker Substance Use Type: None - Medications Home Medications: Home Medications Medication Instructions Recorded Confirmed Last Taken Type Insulin Glargine [Lantus VIAL] 25 unit SUB-Q HS 09/10/16 02/24/17 Unknown History Insulin Lispro [HumaLOG VIAL] 0 units SUB-Q TIDAC 09/10/16 02/24/17 Unknown History Escitalopram Oxalate [Lexapro] 1 tab PO QDAY 02/24/17 02/24/17 Unknown History Furosemide [Lasix TAB] 20 mg PO QDAY 02/24/17 02/24/17 Unknown History Furosemide [Lasix TAB] 20 mg PO QDAY 02/24/17 02/24/17 Unknown History Apixaban [Eliquis] 2.5 mg PO Q12HR #60 tablet 02/27/17 Unknown Rx Aspirin [Adult Low Dose Aspirin EC] 81 mg PO QDAY #30 tablet. 02/27/17 Unknown Rx Carvedilol [Coreg] 25 mg PO BID #60 tablet 02/27/17 Unknown Rx Escitalopram [Lexapro] 20 mg PO DAILY #30 tablet 02/27/17 Unknown Rx Insulin Detemir [Levemir] 25 units SUB-Q QHS #30 units 02/27/17 Unknown Rx Pantoprazole [Protonix TAB] 40 mg PO BID #60 tablet 02/27/17 Unknown Rx Pravastatin Sodium [Pravastatin] 40 mg PO DAILY #30 tablet 02/27/17 Unknown Rx amLODIPine/VALSARTAN [Exforge 1 tab PO QDAY #30 tablet 02/27/17 Unknown Rx 5-160 mg Tablet] busPIRone [Buspar] 10 mg PO TID #90 tablet 02/27/17 Unknown Rx cloNIDine-TTS PATCH [Catapres-Tts 0.2 mg TD We #4 patch 02/27/17 Unknown Rx Patch] clonazePAM [KlonoPIN] 0.5 mg PO BID PRN #60 tablet 02/27/17 Unknown Rx metFORMIN [Glucophage] 500 mg PO BID #60 tablet 02/27/17 Unknown Rx traZODone [Desyrel] 50 mg PO QHS #30 tablet 02/27/17 Unknown Rx Cholestyramine (with Sugar) 4 gm PO QID PRN #40 packet 03/15/17 Unknown Rx [Questran] Ciprofloxacin HCl [Ciprofloxacin 500 mg PO Q12HR #20 tab 03/15/17 Unknown Rx TAB] metroNIDAZOLE [Flagyl] 500 mg PO QID #40 tablet 03/15/17 Unknown Rx Clindamycin [Clindamycin CAP] 300 mg PO Q6H #28 capsule 05/24/17 Unknown Rx Compression Socks, Medium [Futuro 1 each MC QDAY #1 pack 05/24/17 Unknown Rx Restoring] Famotidine [Pepcid] 20 mg PO BID #10 tablet 06/22/17 Unknown Rx diphenhydrAMINE [Benadryl CAP] 50 mg PO QHS #5 capsule 06/22/17 Unknown Rx Rash Exam - Exam General: Vital signs noted. No distress. Alert and acting appropriately. HEENT: No Periorbital Edema, No Conjuctival Injection Lungs: Yes Good Air Exchange, No Wheezes, No Ronchi, No Stridor, No Cough, No Labored Respirations Heart: Yes Regular, No Murmur Skin: Yes Erythema (bilateral dorsum UE erythema, non-blanching, ), Yes Edema ( bilateral LE edema), No Urticarial Rash, No Morbilliform rash, No Bulla(e), No Excoriations, No Weeping, No Tenderness, No Encrustations Other: Positive: Abdomen Normal, Neurologic Normal, Musculoskeletal Normal ED Course Vital Signs 06/22/17 06/22/17 10:49 16:00 Temperature 98.4 F Pulse Rate 86 80 Respiratory 18 12 Rate Blood Pressure 150/80 Blood Pressure 160/75 [Left] O2 Sat by Pulse 99 Oximetry ED Medical Decision Making - Lab Data Result diagrams: 06/22/17 16:08 06/22/17 11:56 - Medical Decision Making Patient comfortable in the room. patient not scratching skin at any time during visit. Expressed concern that color changes on extremities might be related to taking the anticoagulant and bruising. Patient denies tick bite, insect bite, exposure to potential allergen. Recommend conservative treatment, close o/p f/u, and return to ER if symptoms worsen. Patient and family agree with plan and will return if any worsening. Critical care attestation.: If time is entered above; I have spent that time in minutes in the direct care of this critically ill patient, excluding procedure time. ED Disposition Clinical Impression: Dermatitis Disposition: DC-01 TO HOME OR SELFCARE Is pt being admited?: No Condition: Stable Instructions: Acute Rash (ED) Prescriptions: diphenhydrAMINE [Benadryl CAP] 50 mg PO QHS #5 capsule Famotidine [Pepcid] 20 mg PO BID #10 tablet Referrals: PRIMARY CARE, [Primary Care Provider] - 2-3 Days Time of Disposition: 17:46
== END 2017-06-22 18:22 | disposition home or self-care (01) ==
LOC: ED 09:26
DX: L30.9 Dermatitis, unspecified (principal); I10 Essential (primary) hypertension; Z86.73 Personal history of transient ischemic attack (TIA), and cerebral infarction without residual deficits; E11.9 Type 2 diabetes mellitus without complications; K21.9 Gastro-esophageal reflux disease without esophagitis; M19.90 Unspecified osteoarthritis, unspecified site; F32.9 Major depressive disorder, single episode, unspecified; Z79.4 Long term (current) use of insulin; Z88.8 Allergy status to other drugs, medicaments and biological substances
CPT/HCPCS: 36415; 80053; 84484; 85025; 85610; 85730; 99283

== ENCOUNTER 2017-09-25 12:54 | Emergency (ER) | payer MEDICARE ==
--- NOTE | 2017-09-25 13:43 | Emergency Department Report ---
ED General Adult HPI - General Chief complaint: Extremity Injury, Lower Stated complaint: BILATERAL LEG DRAINAGE Time Seen by Provider: 09/25/17 13:31 Source: patient, RN notes reviewed, old records reviewed Mode of arrival: Ambulatory Limitations: No Limitations - History of Present Illness Initial comments: This is a 67-year-old male who was previously unknown to this provider. Patient has a past medical history of diabetes, high cholesterol, hypertension, congestive heart failure, recurrent lower extremity cellulitis, atrial fibrillation Primary care Dr.: Dr Sunni Julio she was sent to the ER for evaluation by his primary care doctor for bilateral lower extremity redness. This has been going on for 2 weeks, but it is chronic. It does not radiate anywhere. It has no exacerbating or relieving factors. Patient denies headache, neck pain, chest pain, abdominal pain, new shortness of breath, fevers, chills, lethargy, irritability. He is tolerating oral feeds. -: Gradual, week(s), month(s) Location: left, right, lower extremity Consistency: constant Improves with: none Worsens with: none Associated Symptoms: denies other symptoms - Related Data Home Medications Medication Instructions Recorded Confirmed Last Taken Insulin Glargine [Lantus VIAL] 25 unit SUB-Q HS 09/10/16 02/24/17 Unknown Insulin Lispro [HumaLOG VIAL] 0 units SUB-Q TIDAC 09/10/16 02/24/17 Unknown Escitalopram Oxalate [Lexapro] 1 tab PO QDAY 02/24/17 02/24/17 Unknown Furosemide [Lasix TAB] 20 mg PO QDAY 02/24/17 02/24/17 Unknown Furosemide [Lasix TAB] 20 mg PO QDAY 02/24/17 02/24/17 Unknown Previous Rx's Medication Instructions Recorded Last Taken Type Apixaban [Eliquis] 2.5 mg PO Q12HR #60 tablet 02/27/17 Unknown Rx Aspirin [Adult Low Dose Aspirin EC] 81 mg PO QDAY #30 tablet. 02/27/17 Unknown Rx Carvedilol [Coreg] 25 mg PO BID #60 tablet 02/27/17 Unknown Rx Escitalopram [Lexapro] 20 mg PO DAILY #30 tablet 02/27/17 Unknown Rx Insulin Detemir [Levemir] 25 units SUB-Q QHS #30 units 02/27/17 Unknown Rx Pantoprazole [Protonix TAB] 40 mg PO BID #60 tablet 02/27/17 Unknown Rx Pravastatin Sodium [Pravastatin] 40 mg PO DAILY #30 tablet 02/27/17 Unknown Rx amLODIPine/VALSARTAN [Exforge 1 tab PO QDAY #30 tablet 02/27/17 Unknown Rx 5-160 mg Tablet] busPIRone [Buspar] 10 mg PO TID #90 tablet 02/27/17 Unknown Rx cloNIDine-TTS PATCH [Catapres-Tts 0.2 mg TD We #4 patch 02/27/17 Unknown Rx Patch] clonazePAM [KlonoPIN] 0.5 mg PO BID PRN #60 tablet 02/27/17 Unknown Rx metFORMIN [Glucophage] 500 mg PO BID #60 tablet 02/27/17 Unknown Rx traZODone [Desyrel] 50 mg PO QHS #30 tablet 02/27/17 Unknown Rx Cholestyramine (with Sugar) 4 gm PO QID PRN #40 packet 03/15/17 Unknown Rx [Questran] Ciprofloxacin HCl [Ciprofloxacin 500 mg PO Q12HR #20 tab 03/15/17 Unknown Rx TAB] metroNIDAZOLE [Flagyl] 500 mg PO QID #40 tablet 03/15/17 Unknown Rx Clindamycin [Clindamycin CAP] 300 mg PO Q6H #28 capsule 05/24/17 Unknown Rx Compression Socks, Medium [Futuro 1 each MC QDAY #1 pack 05/24/17 Unknown Rx Restoring] Famotidine [Pepcid] 20 mg PO BID #10 tablet 06/22/17 Unknown Rx diphenhydrAMINE [Benadryl CAP] 50 mg PO QHS #5 capsule 06/22/17 Unknown Rx Clindamycin [Clindamycin CAP] 300 mg PO Q6H #28 capsule 08/11/17 Unknown Rx Permethrin 5% [Acticin 5% CREAM] 1 applicatio TP ONCE #1 tube 08/11/17 Unknown Rx hydrOXYzine HCL [Atarax] 25 mg PO Q8H PRN #30 tablet 08/11/17 Unknown Rx Clindamycin HCl 300 mg PO Q6HR #28 capsule 09/25/17 Unknown Rx Triamcinolone Acetonide 60 ml TP BID #1 lotion 09/25/17 Unknown Rx [Triamcinolone 0.1% LOTION] Allergies Allergy/AdvReac Type Severity Reaction Status Date / Time vancomycin Allergy Shortness Verified 09/25/17 12:55 of Breath ED Review of Systems ROS: Stated complaint: BILATERAL LEG DRAINAGE Other details as noted in HPI Constitutional: denies: fever Eyes: denies: vision change ENT: denies: epistaxis Respiratory: shortness of breath (chronic) Cardiovascular: denies: chest pain Gastrointestinal: denies: abdominal pain Genitourinary: as per HPI Skin: rash, lesions Neurological: denies: headache ED Past Medical Hx - Past Medical History Hx Hypertension: Yes Hx CVA: Yes (noted on CAT scan, TIA) Hx Congestive Heart Failure: Yes Hx Diabetes: Yes Hx GERD: Yes Hx Arthritis: Yes Hx Psychiatric Treatment: Yes (depression,anxiety) - Surgical History Hx Open Heart Surgery: No Hx Pacemaker: Yes Hx Cholecystectomy: Yes Additional Surgical History: Shoulder surgery; pace maker October 2014 - Social History Smoking Status: Never Smoker Substance Use Type: None - Medications Home Medications: Home Medications Medication Instructions Recorded Confirmed Last Taken Type Insulin Glargine [Lantus VIAL] 25 unit SUB-Q HS 09/10/16 02/24/17 Unknown History Insulin Lispro [HumaLOG VIAL] 0 units SUB-Q TIDAC 09/10/16 02/24/17 Unknown History Escitalopram Oxalate [Lexapro] 1 tab PO QDAY 02/24/17 02/24/17 Unknown History Furosemide [Lasix TAB] 20 mg PO QDAY 02/24/17 02/24/17 Unknown History Furosemide [Lasix TAB] 20 mg PO QDAY 02/24/17 02/24/17 Unknown History Apixaban [Eliquis] 2.5 mg PO Q12HR #60 tablet 02/27/17 Unknown Rx Aspirin [Adult Low Dose Aspirin EC] 81 mg PO QDAY #30 tablet. 02/27/17 Unknown Rx Carvedilol [Coreg] 25 mg PO BID #60 tablet 02/27/17 Unknown Rx Escitalopram [Lexapro] 20 mg PO DAILY #30 tablet 02/27/17 Unknown Rx Insulin Detemir [Levemir] 25 units SUB-Q QHS #30 units 02/27/17 Unknown Rx Pantoprazole [Protonix TAB] 40 mg PO BID #60 tablet 02/27/17 Unknown Rx Pravastatin Sodium [Pravastatin] 40 mg PO DAILY #30 tablet 02/27/17 Unknown Rx amLODIPine/VALSARTAN [Exforge 1 tab PO QDAY #30 tablet 02/27/17 Unknown Rx 5-160 mg Tablet] busPIRone [Buspar] 10 mg PO TID #90 tablet 02/27/17 Unknown Rx cloNIDine-TTS PATCH [Catapres-Tts 0.2 mg TD We #4 patch 02/27/17 Unknown Rx Patch] clonazePAM [KlonoPIN] 0.5 mg PO BID PRN #60 tablet 02/27/17 Unknown Rx metFORMIN [Glucophage] 500 mg PO BID #60 tablet 02/27/17 Unknown Rx traZODone [Desyrel] 50 mg PO QHS #30 tablet 02/27/17 Unknown Rx Cholestyramine (with Sugar) 4 gm PO QID PRN #40 packet 03/15/17 Unknown Rx [Questran] Ciprofloxacin HCl [Ciprofloxacin 500 mg PO Q12HR #20 tab 03/15/17 Unknown Rx TAB] metroNIDAZOLE [Flagyl] 500 mg PO QID #40 tablet 03/15/17 Unknown Rx Clindamycin [Clindamycin CAP] 300 mg PO Q6H #28 capsule 05/24/17 Unknown Rx Compression Socks, Medium [Futuro 1 each MC QDAY #1 pack 05/24/17 Unknown Rx Restoring] Famotidine [Pepcid] 20 mg PO BID #10 tablet 06/22/17 Unknown Rx diphenhydrAMINE [Benadryl CAP] 50 mg PO QHS #5 capsule 06/22/17 Unknown Rx Clindamycin [Clindamycin CAP] 300 mg PO Q6H #28 capsule 08/11/17 Unknown Rx Permethrin 5% [Acticin 5% CREAM] 1 applicatio TP ONCE #1 tube 08/11/17 Unknown Rx hydrOXYzine HCL [Atarax] 25 mg PO Q8H PRN #30 tablet 08/11/17 Unknown Rx Clindamycin HCl 300 mg PO Q6HR #28 capsule 09/25/17 Unknown Rx Triamcinolone Acetonide 60 ml TP BID #1 lotion 09/25/17 Unknown Rx [Triamcinolone 0.1% LOTION] ED Physical Exam - General Limitations: No Limitations General appearance: alert, in no apparent distress, obese - Head Head exam: Present: atraumatic, normocephalic - Eye Eye exam: Present: normal appearance - ENT ENT exam: Present: normal exam, normal orophraynx, mucous membranes moist, normal external ear exam - Neck Neck exam: Present: normal inspection, full ROM - Respiratory Respiratory exam: Present: normal lung sounds bilaterally. Absent: respiratory distress - Cardiovascular Cardiovascular Exam: Present: regular rate, normal rhythm, normal heart sounds. Absent: systolic murmur, diastolic murmur, rubs, gallop - GI/Abdominal GI/Abdominal exam: Present: soft, normal bowel sounds. Absent: distended, tenderness, guarding, rebound, rigid, pulsatile mass - Rectal Rectal exam: Present: deferred - Extremities Exam Extremities exam: Present: full ROM, tenderness, calf tenderness, other (2+ pulses noted in the bilateral upper and lower extremities. The compartments are soft. The right lower extremity is asymmetrically larger than left lower extremity. There is bilateral lower extremity erythema, crusting, there is lower extremity tenderness. There is no streaking.) - Back Exam Back exam: Present: normal inspection, full ROM. Absent: paraspinal tenderness , vertebral tenderness - Neurological Exam Neurological exam: Present: alert, oriented X3, CN II-XII intact, normal gait, other (Extraocular movements intact. Tongue midline. No facial droop. Facial sensation intact to light touch in the V1, V2, V3 distribution bilaterally. 5 and 5 strength in 4 extremities.. Sensation is intact to light touch in 4 extremities.). Absent: motor sensory deficit - Psychiatric Psychiatric exam: Present: normal affect, normal mood - Skin Skin exam: Present: warm, rash, erythema ED Course Vital Signs 09/25/17 09/25/17 09/25/17 12:56 13:56 13:57 Temperature 97.6 F 97.9 F Pulse Rate 95 H 70 Respiratory 18 16 16 Rate Blood Pressure 136/78 Blood Pressure 128/70 [Left] O2 Sat by Pulse 98 96 96 Oximetry - Reevaluation(s) Reevaluation #1: 09/25/17 14:46 Differential diagnosis, including but not limited to: Lymphedema, venous stasis , cellulitis, Assessment and plan: 67-year-old male with reported history of 2 weeks acute on chronic lower extremity redness, swelling, discharge. May have a mild saline component, however there is most likely a component of venous stasis ulcers and stasis dermatitis. Given that symptoms have been present for 2 weeks, but they really haven't spread significant, the patient does not have a fever, he is tolerating liquid feeds, I believe it is reasonable for a trial of outpatient oral antibiotic therapy. I appreciate that his primary care doctor did send him here for evaluation and possible admission, but objectively speaking at this time, I think a trial of oral outpatient antibiotics would be reasonable. In addition, patient's informed me that he is going to follow up with infectious disease at the end of the month with Dr. oconnor and Dr. Seo. In addition, this [facility] has a wound care center that the patient can follow- up in as well. Reevaluation #2: 09/25/17 15:19 Laboratory studies unremarkable. Vital signs stable. DVT study negative. Patient's redness has not worsened. At this point in time, given weeks of symptoms, the patient is suitable for trial of outpatient oral antibiotic therapy. Patient will also be given triamcinolone cream for possible stasis dermatitis, and he can follow up with outpatient wound care, primary care, and dermatology. 09/25/17 15:22 ED Medical Decision Making - Lab Data Result diagrams: 09/25/17 13:46 09/25/17 13:46 Critical care attestation.: If time is entered above; I have spent that time in minutes in the direct care of this critically ill patient, excluding procedure time. ED Disposition Clinical Impression: Chronic dermatitis Disposition: DC-01 TO HOME OR SELFCARE Is pt being admited?: No Does the pt Need Aspirin: No Condition: Stable Instructions: Stasis Dermatitis (ED), Cellulitis (ED) Additional Instructions: Continue current outpatient medications. Wash the lower extremities at least twice daily with Dove soap or gentle soap and water. Make certain to get up at least once per hour and walk around, otherwise keep the lower extremities dry. Use the triamcinolone cream as directed, take the antibiotics as directed. Follow up within the next week with either her primary care doctor, the local wound care facility, or a local entry specialist. Dr. Esparza is a local entry specialist. Return to the ER right away with fevers, chills, intractable nausea or vomiting, confusion, inability to tolerate liquid feeds, new, worse and different pain, new, worsened or different streaking/redness. Referrals: DARSHANA BRYANT MD [Primary Care Provider] - 3-5 Days MELANIE ESPARZA MD [Staff Physician] - 3-5 Days ROBERT ARMENTA MD [Staff Physician] - 3-[address] [facility] [Provider Group] - 3-5 Days [facility] [Outside] - 3-5 Days
[2017-09-25 13:59] VITALS: BP 128/70
[2017-09-25 14:46] LABS: Hematocrit 35.7 % (35.5-45.6); Hemoglobin 11.8 gm/dl (11.8-15.2); Mean Corpuscular HGB Conc 33 % (32-34); Mean Corpuscular Hemoglobin 26 pg (28-32); Mean Corpuscular Volume 80 fl (84-94); Platelet Count 290 K/mm3 (140-440); Red Blood Count 4.49 M/mm3 (3.65-5.03); Red Cell Distribution Width 16.1 % (13.2-15.2); White Blood Count 9.3 K/mm3 (4.5-11.0)
[2017-09-25 14:56] LABS: INR 1.14 (0.87-1.13)
[2017-09-25 14:57] LABS: Partial Thromboplastin Time 38.9 Sec. (24.2-36.6)
[2017-09-25 15:04] LABS: Alanine Aminotransferase 10 units/L (7-56); Albumin 3.6 g/dL (3.9-5); Albumin/Globulin Ratio 1.3 %; Alkaline Phosphatase 89 units/L (35-129); Anion Gap 20 mmol/L; BUN/Creatinine Ratio 14; Blood Urea Nitrogen 13 mg/dL (9-20); Calcium 8.4 mg/dL (8.4-10.2); Carbon Dioxide 24 mmol/L (22-30); Creatine Kinase 46 units/L (55-170); Glucose 244 mg/dL (75-100); Potassium 3.9 mmol/L (3.6-5.0); Sodium 136 mmol/L (137-145); Total Protein 6.4 g/dL (6.3-8.2)
[2017-09-25] MEDS ORDERED: CLEOCIN PO ONE (15:20)
--- NOTE | 2017-09-27 14:06 | Vascular Lab Report ---
LOWER EXTREMITY VENOUS DUPLEX: REASON FOR EXAM: Erythema and swelling of the lower extremities R > L. COMMENTS ON THE RIGHT: All veins visualized are freely compressible without evidence of internal echogenicity. Flow is spontaneous and phasic throughout. COMMENTS ON THE LEFT: All veins visualized are freely compressible without evidence of internal echogenicity. Flow is spontaneous and phasic throughout. IMPRESSION: No evidence of acute or chronic deep venous thrombosis in either lower extremity.
== END 2017-09-25 15:58 | disposition home or self-care (01) ==
LOC: ED 12:54
DX: L30.9 Dermatitis, unspecified (principal); I10 Essential (primary) hypertension; E11.9 Type 2 diabetes mellitus without complications; K21.9 Gastro-esophageal reflux disease without esophagitis
CPT/HCPCS: 36415; 80053; 82550; 85027; 85610; 85730; 93970

== ENCOUNTER 2017-11-26 15:37 | Emergency (ER) | payer MEDICARE ==
[2017-11-26] MEDS ORDERED: BOOSTRIX IM ONE (16:27)
--- NOTE | 2017-11-26 16:28 | Emergency Department Report ---
ED Fall HPI - General Chief Complaint: Fall Stated Complaint: FALLS Time Seen by Provider: 11/26/17 16:26 Source: patient, EMS Mode of arrival: Stretcher - History of Present Illness Initial Comments: 67-year-old male was in a motorized cart when it slipped backwards here complaining of head injury does take blood thinners no loss consciousness, complaints of headache. 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 denies: neck pain, numbness, weakness, chest paint, shortness of breath, abdominal pain, hematuria, unable to walk, lightheaded, vertigo, confusion - Related Data Home Medications Medication Instructions Recorded Confirmed Last Taken Insulin Glargine [Lantus VIAL] 25 unit SUB-Q HS 09/10/16 02/24/17 Unknown Insulin Lispro [HumaLOG VIAL] 0 units SUB-Q TIDAC 09/10/16 02/24/17 Unknown Escitalopram Oxalate [Lexapro] 1 tab PO QDAY 02/24/17 02/24/17 Unknown Furosemide [Lasix TAB] 20 mg PO QDAY 02/24/17 02/24/17 Unknown Furosemide [Lasix TAB] 20 mg PO QDAY 02/24/17 02/24/17 Unknown Previous Rx's Medication Instructions Recorded Last Taken Type Apixaban [Eliquis] 2.5 mg PO Q12HR #60 tablet 02/27/17 Unknown Rx Aspirin [Adult Low Dose Aspirin EC] 81 mg PO QDAY #30 tablet. 02/27/17 Unknown Rx Carvedilol [Coreg] 25 mg PO BID #60 tablet 02/27/17 Unknown Rx Escitalopram [Lexapro] 20 mg PO DAILY #30 tablet 02/27/17 Unknown Rx Insulin Detemir [Levemir] 25 units SUB-Q QHS #30 units 02/27/17 Unknown Rx Pantoprazole [Protonix TAB] 40 mg PO BID #60 tablet 02/27/17 Unknown Rx Pravastatin Sodium [Pravastatin] 40 mg PO DAILY #30 tablet 02/27/17 Unknown Rx amLODIPine/VALSARTAN [Exforge 1 tab PO QDAY #30 tablet 02/27/17 Unknown Rx 5-160 mg Tablet] busPIRone [Buspar] 10 mg PO TID #90 tablet 02/27/17 Unknown Rx cloNIDine-TTS PATCH [Catapres-Tts 0.2 mg TD We #4 patch 02/27/17 Unknown Rx Patch] clonazePAM [KlonoPIN] 0.5 mg PO BID PRN #60 tablet 02/27/17 Unknown Rx metFORMIN [Glucophage] 500 mg PO BID #60 tablet 02/27/17 Unknown Rx traZODone [Desyrel] 50 mg PO QHS #30 tablet 02/27/17 Unknown Rx Cholestyramine (with Sugar) 4 gm PO QID PRN #40 packet 03/15/17 Unknown Rx [Questran] Ciprofloxacin HCl [Ciprofloxacin 500 mg PO Q12HR #20 tab 03/15/17 Unknown Rx TAB] metroNIDAZOLE [Flagyl] 500 mg PO QID #40 tablet 03/15/17 Unknown Rx Clindamycin [Clindamycin CAP] 300 mg PO Q6H #28 capsule 05/24/17 Unknown Rx Compression Socks, Medium [Futuro 1 each MC QDAY #1 pack 05/24/17 Unknown Rx Restoring] Famotidine [Pepcid] 20 mg PO BID #10 tablet 06/22/17 Unknown Rx diphenhydrAMINE [Benadryl CAP] 50 mg PO QHS #5 capsule 06/22/17 Unknown Rx Clindamycin [Clindamycin CAP] 300 mg PO Q6H #28 capsule 08/11/17 Unknown Rx Permethrin 5% [Acticin 5% CREAM] 1 applicatio TP ONCE #1 tube 08/11/17 Unknown Rx hydrOXYzine HCL [Atarax] 25 mg PO Q8H PRN #30 tablet 08/11/17 Unknown Rx Clindamycin HCl 300 mg PO Q6HR #28 capsule 09/25/17 Unknown Rx Triamcinolone Acetonide 60 ml TP BID #1 lotion 09/25/17 Unknown Rx [Triamcinolone 0.1% LOTION] Allergies Allergy/AdvReac Type Severity Reaction Status Date / Time vancomycin Allergy Shortness Verified 09/25/17 12:55 of Breath ED Review of Systems ROS: Stated complaint: FALLS Other details as noted in HPI Comment: All other systems reviewed and negative Constitutional: denies: diaphoresis, fever, malaise, weakness ENT: denies: dental pain, hearing loss, epistaxis Respiratory: denies: cough, orthopnea, shortness of breath, SOB with exertion, SOB at rest, stridor, wheezing Cardiovascular: denies: chest pain, palpitations, dyspnea on exertion, orthopnea , edema, syncope Gastrointestinal: denies: abdominal pain, nausea, vomiting, diarrhea, constipation, hematemesis, melena, hematochezia Musculoskeletal: myalgia. denies: joint swelling, arthralgia Neurological: headache. denies: weakness, numbness, paresthesias, confusion, abnormal gait, vertigo Hematological/Lymphatic: denies: easy bleeding, easy bruising, swollen glands ED Past Medical Hx - Past Medical History Previous Medical History?: Yes Hx Hypertension: Yes Hx CVA: Yes (noted on CAT scan, TIA) Hx Congestive Heart Failure: Yes Hx Diabetes: Yes Hx GERD: Yes Hx Arthritis: Yes Hx Psychiatric Treatment: Yes (depression,anxiety) - Surgical History Past Surgical History?: Yes Hx Open Heart Surgery: No Hx Pacemaker: Yes Hx Cholecystectomy: Yes Additional Surgical History: Shoulder surgery; pace maker October 2014 - Social History Smoking Status: Never Smoker Substance Use Type: None - Medications Home Medications: Home Medications Medication Instructions Recorded Confirmed Last Taken Type Insulin Glargine [Lantus VIAL] 25 unit SUB-Q HS 09/10/16 02/24/17 Unknown History Insulin Lispro [HumaLOG VIAL] 0 units SUB-Q TIDAC 09/10/16 02/24/17 Unknown History Escitalopram Oxalate [Lexapro] 1 tab PO QDAY 02/24/17 02/24/17 Unknown History Furosemide [Lasix TAB] 20 mg PO QDAY 02/24/17 02/24/17 Unknown History Furosemide [Lasix TAB] 20 mg PO QDAY 02/24/17 02/24/17 Unknown History Apixaban [Eliquis] 2.5 mg PO Q12HR #60 tablet 02/27/17 Unknown Rx Aspirin [Adult Low Dose Aspirin EC] 81 mg PO QDAY #30 tablet. 02/27/17 Unknown Rx Carvedilol [Coreg] 25 mg PO BID #60 tablet 02/27/17 Unknown Rx Escitalopram [Lexapro] 20 mg PO DAILY #30 tablet 02/27/17 Unknown Rx Insulin Detemir [Levemir] 25 units SUB-Q QHS #30 units 02/27/17 Unknown Rx Pantoprazole [Protonix TAB] 40 mg PO BID #60 tablet 02/27/17 Unknown Rx Pravastatin Sodium [Pravastatin] 40 mg PO DAILY #30 tablet 02/27/17 Unknown Rx amLODIPine/VALSARTAN [Exforge 1 tab PO QDAY #30 tablet 02/27/17 Unknown Rx 5-160 mg Tablet] busPIRone [Buspar] 10 mg PO TID #90 tablet 02/27/17 Unknown Rx cloNIDine-TTS PATCH [Catapres-Tts 0.2 mg TD We #4 patch 02/27/17 Unknown Rx Patch] clonazePAM [KlonoPIN] 0.5 mg PO BID PRN #60 tablet 02/27/17 Unknown Rx metFORMIN [Glucophage] 500 mg PO BID #60 tablet 02/27/17 Unknown Rx traZODone [Desyrel] 50 mg PO QHS #30 tablet 02/27/17 Unknown Rx Cholestyramine (with Sugar) 4 gm PO QID PRN #40 packet 03/15/17 Unknown Rx [Questran] Ciprofloxacin HCl [Ciprofloxacin 500 mg PO Q12HR #20 tab 03/15/17 Unknown Rx TAB] metroNIDAZOLE [Flagyl] 500 mg PO QID #40 tablet 03/15/17 Unknown Rx Clindamycin [Clindamycin CAP] 300 mg PO Q6H #28 capsule 05/24/17 Unknown Rx Compression Socks, Medium [Futuro 1 each MC QDAY #1 pack 05/24/17 Unknown Rx Restoring] Famotidine [Pepcid] 20 mg PO BID #10 tablet 06/22/17 Unknown Rx diphenhydrAMINE [Benadryl CAP] 50 mg PO QHS #5 capsule 06/22/17 Unknown Rx Clindamycin [Clindamycin CAP] 300 mg PO Q6H #28 capsule 08/11/17 Unknown Rx Permethrin 5% [Acticin 5% CREAM] 1 applicatio TP ONCE #1 tube 08/11/17 Unknown Rx hydrOXYzine HCL [Atarax] 25 mg PO Q8H PRN #30 tablet 08/11/17 Unknown Rx Clindamycin HCl 300 mg PO Q6HR #28 capsule 09/25/17 Unknown Rx Triamcinolone Acetonide 60 ml TP BID #1 lotion 09/25/17 Unknown Rx [Triamcinolone 0.1% LOTION] ED Physical Exam - General Limitations: No Limitations General appearance: alert, in no apparent distress, anxious - Head Head exam: Present: other (2 mm superficial laceration left forehead) - Eye Eye exam: Present: normal appearance, PERRL, EOMI - ENT ENT exam: Present: normal exam, normal orophraynx - Neck Neck exam: Present: normal inspection. Absent: tenderness, meningismus - Respiratory Respiratory exam: Present: normal lung sounds bilaterally. Absent: respiratory distress, wheezes, rales, rhonchi, stridor, chest wall tenderness, accessory muscle use, decreased breath sounds, prolonged expiratory - Cardiovascular Cardiovascular Exam: Present: regular rate, normal rhythm, normal heart sounds - GI/Abdominal GI/Abdominal exam: Present: soft. Absent: distended, tenderness, guarding, rebound, rigid, mass, bruit, pulsatile mass - Extremities Exam Extremities exam: Present: normal inspection, full ROM, normal capillary refill. Absent: tenderness, pedal edema, joint swelling, calf tenderness - Back Exam Back exam: Present: normal inspection. Absent: tenderness, CVA tenderness (R), CVA tenderness (L), muscle spasm, paraspinal tenderness, vertebral tenderness - Neurological Exam Neurological exam: Present: alert, oriented X3, CN II-XII intact. Absent: motor sensory deficit - Psychiatric Psychiatric exam: Present: normal affect ED Course Vital Signs 11/26/17 11/26/17 15:48 16:49 Temperature 98.8 F Pulse Rate 95 H 67 Respiratory 18 18 Rate Blood Pressure 144/79 Blood Pressure 133/77 [Right] O2 Sat by Pulse 97 94 Oximetry ED Medical Decision Making - Lab Data Result diagrams: 11/26/17 16:02 11/26/17 16:02 - Radiology Data Radiology results: report reviewed - Medical Decision Making CT head no acute process per radiology possible old lacunar infarct. CT C- spine degenerative change felt to process. Patient still for outpatient follow- up nonfocal neuro exam. Patient did refuse treatment for the superficial laceration. He was cleaned he was given a tetanus shot he is refusing further evaluation of this at this time he will place topical antibiotic on it at home and he is stable for outpatient follow-up his GCS was 15 Critical care attestation.: If time is entered above; I have spent that time in minutes in the direct care of this critically ill patient, excluding procedure time. ED Disposition Clinical Impression: Laceration, Head injury, Neck strain Disposition: DC-01 TO HOME OR SELFCARE Is pt being admited?: No Condition: Stable Instructions: Muscle Strain (ED), Minor Head Injury (ED), Laceration (ED) Additional Instructions: See her doctor in 2 days and return immediately or call 911 if new or alarming symptoms, tylenol otc as needed as directed Time of Disposition: 20:47
[2017-11-26 16:31] LABS: Hematocrit 38.6 % (35.5-45.6); Hemoglobin 12.7 gm/dl (11.8-15.2); Mean Corpuscular HGB Conc 33 % (32-34); Mean Corpuscular Hemoglobin 26 pg (28-32); Mean Corpuscular Volume 79 fl (84-94); Platelet Count 271 K/mm3 (140-440); Red Blood Count 4.91 M/mm3 (3.65-5.03)
[2017-11-26 16:49] LABS: BUN/Creatinine Ratio 20; Blood Urea Nitrogen 24 mg/dL (9-20); Calcium 8.9 mg/dL (8.4-10.2); Hemolysis Index 16
[2017-11-26 16:50] VITALS: BP 133/77
[2017-11-26 16:50] LABS: INR 0.96 (0.87-1.13)
[2017-11-26 16:51] LABS: Partial Thromboplastin Time 33.7 Sec. (24.2-36.6)
--- NOTE | 2017-11-26 18:58 | Cat Scan Report ---
FINAL REPORT EXAM: CT HEAD/BRAIN WO CON HISTORY: fall TECHNIQUE: CT examination of the head without IV contrast PRIORS: None. FINDINGS: Slight mucosal thickening left maxillary sinus. Left parietal scalp swelling with small scalp hematoma. Adjacent skull intact. No acute air-fluid level visualized in the included air-filled sinuses. Bone windows demonstrate no acute fracture. There is ventricular and sulcal prominence compatible with global cerebrocortical atrophy. The brain contains no mass, mass effect, hemorrhage, or acute infarct. There is no extra-axial intracranial bleed, brain bleed, or midline shift. Small hypodensity in the upper right basal ganglia most compatible with chronic lacunar infarct. IMPRESSION: No acute CVA, intracranial bleed, or brain mass Small chronic appearing lacunar infarct in upper right basal ganglia
--- NOTE | 2017-11-26 19:56 | Cat Scan Report ---
FINAL REPORT EXAM: CT CERVICAL SPINE WO CON HISTORY: fall with neck pain TECHNIQUE: Standard CT cervical spine obtained at 2.5 millimeter axial increments. Coronal and sagittal reconstruction was also performed. PRIORS: None. FINDINGS: The vertebral bodies are intact. There is no evidence for acute fracture. There is no evidence for paravertebral soft tissue swelling. There reversal of normal cervical curvature centered around C5, probably degenerative. Extensive disc space narrowing from C4 through C7 is seen with spurring anteriorly and posteriorly at these levels. A mild, retrolisthesis of C5 on C6 is seen. Bilateral facet joint degenerative changes at C2-C3 and C3-C4 is noted. IMPRESSION: No acute bony abnormality of the cervical spine. Extensive degenerative changes in the mid and lower cervical spine. This is associated reversal of cervical curvature centered around C5, likely degenerative.
== END 2017-11-26 21:48 | disposition home or self-care (01) ==
LOC: ED 15:37
DX: S01.81XA Laceration without foreign body of other part of head, initial encounter (principal); I10 Essential (primary) hypertension; Z86.73 Personal history of transient ischemic attack (TIA), and cerebral infarction without residual deficits; I50.9 Heart failure, unspecified; K21.9 Gastro-esophageal reflux disease without esophagitis; F32.9 Major depressive disorder, single episode, unspecified; F41.9 Anxiety disorder, unspecified; Z88.8 Allergy status to other drugs, medicaments and biological substances; Z79.4 Long term (current) use of insulin; W01.0XXA Fall on same level from slipping, tripping and stumbling without subsequent striking against object, initial encounter; Y93.89 Activity, other specified; Y92.89 Other specified places as the place of occurrence of the external cause; Y99.8 Other external cause status
CPT/HCPCS: 36415; 70450; 72125; 80048; 85027; 85610; 85730; 90471; 90715

== ENCOUNTER 2018-03-08 15:20 | Inpatient (IN) | payer MEDICARE ==
--- NOTE | 2018-03-08 16:20 | XRay Report ---
FINAL REPORT PROCEDURE: Chest. TECHNIQUE: PA and lateral views. HISTORY: Shortness of breath. COMPARISON: No prior studies are available for comparison. FINDINGS: The heart size is borderline. There is mild tortuosity of the thoracic aorta. The lungs are clear and well expanded. There are no pleural effusions. There is a left-sided pacemaker with dual electrode leads. The soft tissues and regional skeleton are unremarkable. IMPRESSION: No evidence of acute disease.
[2018-03-08 16:46] LABS: Basophils # (Auto) 0.1 K/mm3 (0.0-0.1); Basophils % (Auto) 0.9 % (0.0-1.8); Eosinophils # (Auto) 0.3 K/mm3 (0.0-0.4); Eosinophils % (Auto) 3.8 % (0.0-4.3); Hematocrit 37.4 % (35.5-45.6); Hemoglobin 12.6 gm/dl (11.8-15.2); Lymphocytes # (Auto) 1.2 K/mm3 (1.2-5.4); Lymphocytes % (Auto) 14.9 % (13.4-35.0); Mean Corpuscular HGB Conc 34 % (32-34); Mean Corpuscular Hemoglobin 27 pg (28-32); Mean Corpuscular Volume 80 fl (84-94); Monocytes # (Auto) 0.8 K/mm3 (0.0-0.8); Monocytes % (Auto) 10.3 % (0.0-7.3); Platelet Count 274 K/mm3 (140-440)
[2018-03-08 16:50] LABS: INR 1.05 (0.87-1.13)
[2018-03-08 16:51] LABS: Partial Thromboplastin Time 31.3 Sec. (24.2-36.6)
[2018-03-08 17:05] LABS: BUN/Creatinine Ratio 16; Blood Urea Nitrogen 13 mg/dL (9-20); Calcium 8.9 mg/dL (8.4-10.2); Hemolysis Index 4
[2018-03-08 17:40] LABS: Albumin 3.6 g/dL (3.9-5); Bilirubin,Direct 0.2 mg/dL (0-0.2)
--- NOTE | 2018-03-08 18:17 | Emergency Department Report ---
ED General Adult HPI - General Chief complaint: Extremity Injury, Lower Stated complaint: LEG PAIN Time Seen by Provider: 03/08/18 17:08 Source: patient Mode of arrival: Ambulatory Limitations: Physical Limitation - History of Present Illness Initial comments: 67-year-old type II diabetic male who has been going to the wound care clinic for stasis ulcers of his left leg. His family is applying specialized dressing to the ulcers as directed by the wound care clinic. His family has noted increased redness and warmth of his left leg. He is not currently on antibiotics. They do not know exactly what sort of dressing are being applied to the wound ulcers. The patient complains of pain of his left leg. In September 2017 the patient had a negative Doppler study. He initially denied any history of DVT. However, later his family stated that more than 20 years ago he may have had a DVT and was on blood thinners. In any case he has stasis dermatitis and venous insufficiency of both legs and ulcers of his left leg. He has recently developed an itchy rash that involves both forearms and his face as well as his legs. He has not had any exposures or been outside in a woody environment. He has never had eczema before he does not think. He is a type II diabetic. He does not complain of any significant leg pain at this time. He's had no difficulty in breathing cough or chest pain. He's had no recent travel. -: Gradual, days(s), week(s) Location: left (HEENT rash over the lower extremities. Discomfort left leg and swelling), right, upper extremity, lower extremity Severity scale (0 -10): 0 Quality: other Consistency: intermittent Improves with: none Worsens with: none Associated Symptoms: denies other symptoms Treatments Prior to Arrival: none - Related Data Home Medications Medication Instructions Recorded Confirmed Last Taken Insulin Glargine [Lantus VIAL] 25 unit SUB-Q HS 09/10/16 02/24/17 Unknown Insulin Lispro [HumaLOG VIAL] 0 units SUB-Q TIDAC 09/10/16 02/24/17 Unknown Escitalopram Oxalate [Lexapro] 1 tab PO QDAY 02/24/17 02/24/17 Unknown Furosemide [Lasix TAB] 20 mg PO QDAY 02/24/17 02/24/17 Unknown Furosemide [Lasix TAB] 20 mg PO QDAY 02/24/17 02/24/17 Unknown Previous Rx's Medication Instructions Recorded Last Taken Type Apixaban [Eliquis] 2.5 mg PO Q12HR #60 tablet 02/27/17 Unknown Rx Aspirin [Adult Low Dose Aspirin EC] 81 mg PO QDAY #30 tablet. 02/27/17 Unknown Rx Carvedilol [Coreg] 25 mg PO BID #60 tablet 02/27/17 Unknown Rx Detemir (Nf) [Levemir (Nf)] 25 units SUB-Q QHS #30 units 02/27/17 Unknown Rx Escitalopram [Lexapro] 20 mg PO DAILY #30 tablet 02/27/17 Unknown Rx Pantoprazole [Protonix TAB] 40 mg PO BID #60 tablet 02/27/17 Unknown Rx Pravastatin Sodium [Pravastatin] 40 mg PO DAILY #30 tablet 02/27/17 Unknown Rx amLODIPine/VALSARTAN [Exforge 1 tab PO QDAY #30 tablet 02/27/17 Unknown Rx 5-160 mg Tablet] busPIRone [Buspar] 10 mg PO TID #90 tablet 02/27/17 Unknown Rx cloNIDine-TTS PATCH [Catapres-Tts 0.2 mg TD We #4 patch 02/27/17 Unknown Rx Patch] clonazePAM [KlonoPIN] 0.5 mg PO BID PRN #60 tablet 02/27/17 Unknown Rx metFORMIN [Glucophage] 500 mg PO BID #60 tablet 02/27/17 Unknown Rx traZODone [Desyrel] 50 mg PO QHS #30 tablet 02/27/17 Unknown Rx Cholestyramine (with Sugar) 4 gm PO QID PRN #40 packet 03/15/17 Unknown Rx [Questran] Ciprofloxacin HCl [Ciprofloxacin 500 mg PO Q12HR #20 tab 03/15/17 Unknown Rx TAB] metroNIDAZOLE [Flagyl] 500 mg PO QID #40 tablet 03/15/17 Unknown Rx Clindamycin [Clindamycin CAP] 300 mg PO Q6H #28 capsule 05/24/17 Unknown Rx Compression Socks, Medium [Futuro 1 each MC QDAY #1 pack 05/24/17 Unknown Rx Restoring] Famotidine [Pepcid] 20 mg PO BID #10 tablet 06/22/17 Unknown Rx diphenhydrAMINE [Benadryl CAP] 50 mg PO QHS #5 capsule 06/22/17 Unknown Rx Clindamycin [Clindamycin CAP] 300 mg PO Q6H #28 capsule 08/11/17 Unknown Rx Permethrin 5% [Acticin 5% CREAM] 1 applicatio TP ONCE #1 tube 08/11/17 Unknown Rx hydrOXYzine HCL [Atarax] 25 mg PO Q8H PRN #30 tablet 08/11/17 Unknown Rx Clindamycin HCl 300 mg PO Q6HR #28 capsule 09/25/17 Unknown Rx Triamcinolone Acetonide 60 ml TP BID #1 lotion 09/25/17 Unknown Rx [Triamcinolone 0.1% LOTION] Allergies Allergy/AdvReac Type Severity Reaction Status Date / Time vancomycin Allergy Shortness Verified 09/25/17 12:55 of Breath ED Review of Systems ROS: Stated complaint: LEG PAIN Other details as noted in HPI Constitutional: denies: chills, fever Eyes: denies: eye pain, eye discharge, vision change ENT: denies: ear pain, throat pain Respiratory: denies: cough, shortness of breath, wheezing Cardiovascular: denies: chest pain, palpitations Endocrine: no symptoms reported Gastrointestinal: denies: abdominal pain, nausea, diarrhea Genitourinary: denies: urgency, dysuria Musculoskeletal: as per HPI. denies: back pain, joint swelling, arthralgia Skin: as per HPI, rash. denies: lesions Neurological: denies: headache, weakness, paresthesias Psychiatric: denies: anxiety, depression Hematological/Lymphatic: denies: easy bleeding, easy bruising ED Past Medical Hx - Past Medical History Previous Medical History?: Yes Hx Hypertension: Yes Hx CVA: Yes (noted on CAT scan, TIA) Hx Congestive Heart Failure: Yes Hx Diabetes: Yes Hx GERD: Yes Hx Arthritis: Yes Hx Psychiatric Treatment: Yes (depression,anxiety) Additional medical history: Rash to [facility] - Surgical History Past Surgical History?: Yes Hx Open Heart Surgery: No Hx Pacemaker: Yes Hx Cholecystectomy: Yes Additional Surgical History: Shoulder surgery; pace maker October 2014 - Social History Smoking Status: Never Smoker Substance Use Type: None - Medications Home Medications: Home Medications Medication Instructions Recorded Confirmed Last Taken Type Insulin Glargine [Lantus VIAL] 25 unit SUB-Q HS 09/10/16 02/24/17 Unknown History Insulin Lispro [HumaLOG VIAL] 0 units SUB-Q TIDAC 09/10/16 02/24/17 Unknown History Escitalopram Oxalate [Lexapro] 1 tab PO QDAY 02/24/17 02/24/17 Unknown History Furosemide [Lasix TAB] 20 mg PO QDAY 02/24/17 02/24/17 Unknown History Furosemide [Lasix TAB] 20 mg PO QDAY 02/24/17 02/24/17 Unknown History Apixaban [Eliquis] 2.5 mg PO Q12HR #60 tablet 02/27/17 Unknown Rx Aspirin [Adult Low Dose Aspirin EC] 81 mg PO QDAY #30 tablet. 02/27/17 Unknown Rx Carvedilol [Coreg] 25 mg PO BID #60 tablet 02/27/17 Unknown Rx Detemir (Nf) [Levemir (Nf)] 25 units SUB-Q QHS #30 units 02/27/17 Unknown Rx Escitalopram [Lexapro] 20 mg PO DAILY #30 tablet 02/27/17 Unknown Rx Pantoprazole [Protonix TAB] 40 mg PO BID #60 tablet 02/27/17 Unknown Rx Pravastatin Sodium [Pravastatin] 40 mg PO DAILY #30 tablet 02/27/17 Unknown Rx amLODIPine/VALSARTAN [Exforge 1 tab PO QDAY #30 tablet 02/27/17 Unknown Rx 5-160 mg Tablet] busPIRone [Buspar] 10 mg PO TID #90 tablet 02/27/17 Unknown Rx cloNIDine-TTS PATCH [Catapres-Tts 0.2 mg TD We #4 patch 02/27/17 Unknown Rx Patch] clonazePAM [KlonoPIN] 0.5 mg PO BID PRN #60 tablet 02/27/17 Unknown Rx metFORMIN [Glucophage] 500 mg PO BID #60 tablet 02/27/17 Unknown Rx traZODone [Desyrel] 50 mg PO QHS #30 tablet 02/27/17 Unknown Rx Cholestyramine (with Sugar) 4 gm PO QID PRN #40 packet 03/15/17 Unknown Rx [Questran] Ciprofloxacin HCl [Ciprofloxacin 500 mg PO Q12HR #20 tab 03/15/17 Unknown Rx TAB] metroNIDAZOLE [Flagyl] 500 mg PO QID #40 tablet 03/15/17 Unknown Rx Clindamycin [Clindamycin CAP] 300 mg PO Q6H #28 capsule 05/24/17 Unknown Rx Compression Socks, Medium [Futuro 1 each MC QDAY #1 pack 05/24/17 Unknown Rx Restoring] Famotidine [Pepcid] 20 mg PO BID #10 tablet 06/22/17 Unknown Rx diphenhydrAMINE [Benadryl CAP] 50 mg PO QHS #5 capsule 06/22/17 Unknown Rx Clindamycin [Clindamycin CAP] 300 mg PO Q6H #28 capsule 08/11/17 Unknown Rx Permethrin 5% [Acticin 5% CREAM] 1 applicatio TP ONCE #1 tube 08/11/17 Unknown Rx hydrOXYzine HCL [Atarax] 25 mg PO Q8H PRN #30 tablet 08/11/17 Unknown Rx Clindamycin HCl 300 mg PO Q6HR #28 capsule 09/25/17 Unknown Rx Triamcinolone Acetonide 60 ml TP BID #1 lotion 09/25/17 Unknown Rx [Triamcinolone 0.1% LOTION] ED Physical Exam - General Limitations: Physical Limitation General appearance: alert, in no apparent distress - Head Head exam: Present: atraumatic, normocephalic - Eye Eye exam: Present: normal appearance. Absent: scleral icterus - ENT ENT exam: Present: mucous membranes moist - Neck Neck exam: Present: normal inspection. Absent: tenderness, meningismus - Respiratory Respiratory exam: Present: normal lung sounds bilaterally. Absent: respiratory distress - Cardiovascular Cardiovascular Exam: Present: regular rate, normal rhythm. Absent: systolic murmur, diastolic murmur, rubs, gallop - GI/Abdominal GI/Abdominal exam: Present: soft, normal bowel sounds. Absent: distended, tenderness, guarding, rebound, rigid - Rectal Rectal exam: Present: deferred - Extremities Exam Extremities exam: Present: other (patient has an eczematous rash of both dorsal forearms. He has some scattered eczematous dermatitis of his face and elsewhere. He has superficial ulcers of his pretibial mid left leg. There is erythema above the ankle and below the knee. There is soft tissue swelling of the left leg. There is no gross calf tenderness or inguinal adenopathy.) - Back Exam Back exam: Present: normal inspection - Neurological Exam Neurological exam: Present: alert, oriented X3, CN II-XII intact. Absent: motor sensory deficit - Psychiatric Psychiatric exam: Present: normal affect, normal mood - Skin Skin exam: Present: warm, dry, other (superficial ulcers of the left leg, erythema and warmth as described.). Absent: rash ED Course Vital Signs 03/08/18 03/08/18 15:24 17:37 Temperature 98.4 F 98 F Pulse Rate 93 H 77 Respiratory 22 16 Rate Blood Pressure 138/100 Blood Pressure 132/68 [Left] O2 Sat by Pulse 97 98 Oximetry - Reevaluation(s) Reevaluation #1: The patient has a stasis dermatitis/cellulitis of his left leg and elsewhere. He needs MRSA coverage. He has been found to be allergic to vancomycin. I ordered Linezolid and Ancef. Dr. Rodriguez stated that he would consult infectious disease. The patient was admitted by Dr. Rodriguez to the hospitalist service. 03/08/18 19:26 ED Medical Decision Making - Lab Data Result diagrams: 03/08/18 16:09 03/08/18 16:09 Laboratory Results - last 24 hr 03/08/18 03/08/18 03/08/18 16:09 16:09 16:09 WBC 7.7 RBC 4.70 Hgb 12.6 Hct 37.4 MCV 80 L MCH 27 L MCHC 34 RDW 17.0 H Plt Count 274 Lymph % (Auto) 14.9 [place] % (Auto) 10.3 H Eos % (Auto) 3.8 Baso % (Auto) 0.9 Lymph # 1.2 [place] # 0.8 Eos # 0.3 Baso # 0.1 Seg Neutrophils % 70.1 H Seg Neutrophils # 5.4 PT 14.2 INR 1.05 APTT 31.3 D-Dimer Sodium 137 Potassium 3.7 Chloride 96.4 L Carbon Dioxide 30 Anion Gap 14 BUN 13 Creatinine 0.8 Estimated GFR > 60 BUN/Creatinine Ratio 16 Glucose 182 H Calcium 8.9 Total Bilirubin Direct Bilirubin Indirect Bilirubin AST ALT Alkaline Phosphatase Troponin T < 0.010 Total Protein Albumin Albumin/Globulin Ratio 03/08/18 03/08/18 16:09 16:09 WBC RBC Hgb Hct MCV MCH MCHC RDW Plt Count Lymph % (Auto) [place] % (Auto) Eos % (Auto) Baso % (Auto) Lymph # [place] # Eos # Baso # Seg Neutrophils % Seg Neutrophils # PT INR APTT D-Dimer 428.91 H Sodium Potassium Chloride Carbon Dioxide Anion Gap BUN Creatinine Estimated GFR BUN/Creatinine Ratio Glucose Calcium Total Bilirubin 0.60 Direct Bilirubin 0.2 Indirect Bilirubin 0.4 AST 21 ALT 18 Alkaline Phosphatase 121 Troponin T Total Protein 7.2 Albumin 3.6 L Albumin/Globulin Ratio 1.0 Critical care attestation.: If time is entered above; I have spent that time in minutes in the direct care of this critically ill patient, excluding procedure time. ED Disposition Clinical Impression: Cellulitis of left leg, Stasis dermatitis of both legs, Venous stasis, Type 2 diabetes mellitus Eczema Qualifiers: Eczema type: unspecified Qualified Code(s): L30.9 - Dermatitis, unspecified Disposition: OP ADMIT IP TO THIS HOSP Is pt being admited?: Yes Does the pt Need Aspirin: Yes Condition: Stable Instructions: Diabetes Mellitus Type 2 in Adults (ED) Referrals: PRIMARY CAREMD [Primary Care Provider] - 3-5 Days Time of Disposition: 19:29
[2018-03-08] MEDS ORDERED: ceFAZolin 1 GM in NACL 0.9% 20 ML IV SCH (18:45)
[2018-03-08] MEDS ORDERED: BABY ASPIRIN PO ONE (19:29)
[2018-03-08 20:09] LABS: Bilirubin,Urine NEG (Negative); Blood,Urine SM (Negative); Color,Urine Yellow (Yellow); Protein,Urine <15 mg/dL mg/dL (Negative); Urobilinogen,Urine < 2.0 mg/dL (<2.0); WBC,Urine < 1.0 /HPF (0.0-6.0)
[2018-03-08] MEDS ORDERED: MORPHINE IV ONE (21:09)
[2018-03-08] MEDS ORDERED: MORPHINE ONE (21:10)
--- NOTE | 2018-03-08 21:15 | Event Note ---
Date: 03/08/18 See dictated history and physical in reports
[2018-03-08] MEDS ORDERED: ZYVOX 600MG/300ML 600 MG/300 ML BAG IV SCH (22:00)
--- NOTE | 2018-03-08 22:43 | Event Note ---
Date: 03/08/18 See dictated history and physical in the reports
[2018-03-08] MEDS ORDERED: ATARAX PO PRN (22:53)
[2018-03-08] MEDS ORDERED: QUESTRAN PO PRN (22:53)
[2018-03-08] MEDS ORDERED: TRIAMCINOLONE ACETONIDE TP SCH (23:00)
[2018-03-08] MEDS ORDERED: MORPHINE IV PRN (23:07)
[2018-03-08] MEDS ORDERED: ZOFRAN IV PRN (23:07)
[2018-03-08] MEDS ORDERED: TYLENOL PO PRN (23:07)
[2018-03-08] MEDS ORDERED: AMBIEN PO PRN (23:07)
[2018-03-08] MEDS ORDERED: PERCOCET 5/325 PO PRN (23:07)
--- NOTE | 2018-03-08 23:12 | History and Physical Report ---
CHIEF COMPLAINT: Left lower extremity chronic ulcer and increasing redness for the last one week. HISTORY OF PRESENT ILLNESS: A 67-year-old male with multiple medical problems including insulin-dependent diabetes, hypertension and depression, comes in for chronic left lower extremity open wound for the last 6-7 years, but has worsened in the last 1 week, severe redness present and also lot of pain present. The patient has been off and on antibiotics multiple times. The patient used to go to wound care clinic, but has not been going to the Wound Care Clinic. Uses some dressing, but the patient is not sure. The patient had vascular study and is negative. The patient had a DVT more than 20 years ago. The patient has venous insufficiency and stasis dermatitis in both the legs. Low grade fever present. Insulin-dependent diabetes present. The patient has severe redness from just below the knee up to the dorsum of the foot anteriorly. Leg extending from 30 cm into 10 cm superficial ulcer with severe redness. PAST MEDICAL HISTORY: As mentioned hypertension, depression, insulin dependent diabetes, chronic left lower extremity ulcer and eczema. PAST SURGICAL HISTORY: Has a pacemaker, cholecystectomy, shoulder surgery, pacemaker was in 2015. SOCIAL HISTORY: Does not smoke. No alcohol, no recreational drugs. FAMILY HISTORY: Significant for hypertension. CURRENT MEDICATIONS: On the chart. REVIEW OF SYSTEMS: Significant for left lower extremity chronic ulcer with increasing infection in the last 7-10 days. Also, severe pain present. Has a small ulcer on the right lower extremity about 2 cm x 1 cm. Otherwise, review of systems negative. PHYSICAL EXAMINATION: GENERAL: Elderly male, cooperative during examination. VITAL SIGNS: Blood pressure is 138/100 which has come down to 132/68, temperature is 98.4, pulse is 93, respirations are 20. HEENT: Unremarkable. Pupils equal and reactive. NECK: Supple, no lymphadenopathy, no thyromegaly. LUNGS: Clear to auscultation and percussion. Good air entry. CARDIOVASCULAR: S1, S2 heard. No gallop, no murmur, no rub. Apical impulse in left fifth intercostal space and midclavicular line. ABDOMEN: Soft and benign. No hepatosplenomegaly. No guarding, no rigidity. Hernial orifices are normal. EXTREMITIES: Good pedal pulses. No pedal edema. CENTRAL NERVOUS SYSTEM: Alert and oriented. Nonfocal exam. SKIN: Severe left lower extremity ulcer extending from just below the knee up to the ankle and the dorsum. Severe redness present. No drainage present. A small amount of dressings are remaining on the ulcer. There is also a small ulcer on the right lower extremity about 2 cm x 1 cm. LABORATORY DATA: Significant for white count of 7700, H and H is 12.6 and 37.4. Sodium is 137, potassium is 3.7, glucose is 182, albumin is 3.6. Urine is negative. Urine glucose is 50. Wound pictures on the chart. ASSESSMENT AND PLAN: 1. Left lower extremity cellulitis, severe. The patient initiated on Unasyn and Zyvox. ID consult requested. Also, surgical consult requested. 2. Insulin-dependent diabetes. Continue insulin. Check hemoglobin A1c and adjust the dosage. 3. Hypertension. Continue clonidine patch every weekly. 4. Depression. Continue Lexapro. 5. DVT prophylaxis. Continue apixaban q.12 hours. 6. Venous insufficiency. Vascular Surgery consult requested for their input. In summary, the patient has left lower extremity cellulitis, severe. The patient has an appointment at the [facility] on Wednesday. Should follow with the wound care clinic on Wednesday. In the meantime, wound care consult and ID consult and surgical consult and Vascular Surgery consult requested. JOB# [id number] ADALBERTO/NIKOLAS
[2018-03-09] MEDS: LANTUS SUB-Q SCH ×2 (00:33→22:12)
[2018-03-09] MEDS: ELIQUIS PO SCH ×3 (00:34→22:09)
[2018-03-09] MEDS: COREG PO SCH ×3 (00:35→22:09)
[2018-03-09] MEDS: HumaLOG SUB-Q SCH ×5 (00:40→22:11)
--- NOTE | 2018-03-09 08:15 | Consultation ---
History of Present Illness - Reason for Consult Consult date: 03/09/18 Cellulitis Requesting physician: KELLEY SOLIS - History of Present Illness HPI:67-year-old type M PMH type II DM, CVA, CHF, pacemaker placement, GERD, arthritis, HTN, anxiety, depression, BLE venous stasis ulcers, currently has ulcers on his LLE, for which has followed at the wound care clinic in the past, who presented to [facility] ER 03/08 c/o about 5 days history of increased redness, pain and warmth of his left leg. He denies F/C, N/V/D, cough, SOB, CP, abdominal pain, dysuria, HAs. In the ER temperature 98.4, pulse 93, respiratory rate 22, saturation 97%, blood pressure 138/100. Labs showed white blood cell count of 7.7, H&H 12.6 and 37.4, platelets 274. Bun and creatinine 13 and 0.8. Lactic acid 1.4. Blood cultures were collected on 03/08 and are in progress. Chest x-ray showed no acute findings. Patient received cefazolin and Linezolid (he is allergic to vancomycin) in the emergency room. He is currently on linezolid. Infectious diseases is consulted to help with further antibiotic management. Microbiology: Blood cultures: 03/08 pending Current Antimicrobials: Linezolid 03/08- Previous Antimicrobials: Ancef x 1 03/08- Past History Past Medical History: arthritis, diabetes, DVT, GERD, heart failure, hypertension, other (CVA) Past Surgical History: cholecystectomy, Other (pacemaker placement, shoulder surgery) Medications and Allergies Allergies Allergy/AdvReac Type Severity Reaction Status Date / Time vancomycin Allergy Shortness Verified 09/25/17 12:55 of Breath Home Medications Medication Instructions Recorded Confirmed Last Taken Type Insulin Glargine [Lantus VIAL] 25 unit SUB-Q HS 09/10/16 03/09/18 03/07/18 History Furosemide [Lasix TAB] 20 mg PO QDAY 02/24/17 03/09/18 03/07/18 History Furosemide [Lasix TAB] 20 mg PO QDAY 02/24/17 03/09/18 03/07/18 History Apixaban [Eliquis] 2.5 mg PO Q12HR #60 tablet 02/27/17 03/09/18 03/08/18 Rx Carvedilol [Coreg] 25 mg PO BID #60 tablet 02/27/17 03/09/18 03/07/18 Rx Pravastatin Sodium [Pravastatin] 40 mg PO DAILY #30 tablet 02/27/17 03/09/18 Rx metFORMIN [Glucophage] 500 mg PO BID #60 tablet 02/27/17 03/09/18 03/07/18 Rx Compression Socks, Medium [Futuro 1 each MC QDAY #1 pack 05/24/17 03/09/1803/08 Rx Restoring] Famotidine [Pepcid] 20 mg PO BID #10 tablet 06/22/17 03/09/18 03/07/18 Rx diphenhydrAMINE [Benadryl CAP] 50 mg PO QHS #5 capsule 06/22/17 03/09/18 23:00 Rx hydrOXYzine HCL [Atarax] 25 mg PO Q8H PRN #30 tablet 08/11/17 03/09/18 03/08/18 Rx Active Meds: Active Medications Acetaminophen (Tylenol) 650 mg PO Q4H PRN PRN Reason: Pain MILD(1-3)/Fever >100.5/ROMERO Amlodipine Besylate (Norvasc) 5 mg PO QDAY [facility] Apixaban (Eliquis) 2.5 mg PO Q12HR [facility]; Protocol Last Admin: 03/09/18 00:34 Dose: 2.5 mg Aspirin (Halfprin Ec) 81 mg PO QDAY [facility] Buspirone HCl (Buspar) 10 mg PO TID [facility] Carvedilol (Coreg) 25 mg PO BID [facility] Last Admin: 03/09/18 00:35 Dose: 25 mg Cholestyramine Resin (Questran) 4 gm PO QID PRN PRN Reason: Diarrhea Clonazepam (Klonopin) 0.5 mg PO BID PRN PRN Reason: Anxiety Clonidine HCl (Catapres-Tts Patch) 0.2 mg TD We [facility] Diphenhydramine HCl (Benadryl) 50 mg PO QHS [facility] Escitalopram Oxalate (Lexapro) 20 mg PO DAILY [facility] Famotidine (Pepcid) 20 mg PO BID [facility] Furosemide (Lasix) 20 mg PO QDAY [facility] Hydroxyzine HCl (Atarax) 25 mg PO Q8H PRN PRN Reason: Itching Last Admin: 03/09/18 00:35 Dose: 25 mg Linezolid (Zyvox 600mg/300ml) 600 mg in 300 mls @ 300 mls/hr IV Q12HR [facility]; Protocol Last Admin: 03/09/18 00:33 Dose: 300 mls/hr Insulin Glargine (Lantus) 25 units SUB-Q HS [facility] Last Admin: 03/09/18 00:33 Dose: 25 units Insulin Human Lispro (Humalog) 0 unit SUB-Q ACHS [facility]; Protocol Last Admin: 03/09/18 00:40 Dose: 3 unit Metformin HCl (Glucophage) 500 mg PO BIDDIAB [facility] Miscellaneous Medication (Triamcinolone Acetonide [Triamcinolone 0.1% Lotion]) 60 ml TP BID [facility] Morphine Sulfate (Morphine) 4 mg IV Q4H PRN PRN Reason: Pain, Moderate (4-6) Ondansetron HCl (Zofran) 4 mg IV Q8H PRN PRN Reason: Nausea And Vomiting Oxycodone/Acetaminophen (Percocet 5/325) 1 tab PO Q6H PRN PRN Reason: Pain, Moderate (4-6) Last Admin: 03/09/18 00:34 Dose: 1 tab Pravastatin Sodium (Pravachol) 40 mg PO DAILY [facility] Sodium Chloride (Sodium Chloride Flush Syringe 10 Ml) 10 ml IV BID [facility] Sodium Chloride (Sodium Chloride Flush Syringe 10 Ml) 10 ml IV PRN PRN PRN Reason: LINE FLUSH Trazodone HCl (Desyrel) 50 mg PO QHS [facility] Valsartan (Diovan) 160 mg PO QDAY [facility] Zolpidem Tartrate (Ambien) 5 mg PO QHS PRN PRN Reason: Insomnia Review of Systems Constitutional: other (as per HPI) Physical Examination - Physical Exam Narrative exam: General appearance: Obese mle, in NAD, A&Ox3. All Eyes: anicteric sclerae, moist conjunctivae; no lid-lag; PERRLA HENT: Atraumatic; oropharynx clear with moist mucous membranes and no mucosal ulcerations/no oral thrush; normal hard and soft palate. Normal external ears. Neck: Trachea midline; supple, no thyromegaly or lymphadenopathy Lungs: CTA, with normal respiratory effort and no intercostal retractions CV: RRR. S1,S2. Left pacemaker, no erythema, tenderness or drainage. Abdomen: Obese. +BS. Soft, NT/ND. Extremities: BLE venous stasis dermatitis. Mild BLE edema. Erythema of LLE from below knee to foot. Left leg with venous ulcers with serous drainage. Skin: As above. Psych: Appropriate affect, alert and oriented to person, place and time. Neuro: alert and oriented x 3. Moving all extremities Lines: No CVL / PICC - Constitutional Vitals: Vital Signs Temp Pulse Resp BP Pulse Ox 98.5 F 83 20 112/50 95 03/09/18 02:55 03/09/18 02:55 03/09/18 02:55 03/09/18 02:55 03/09/18 02:55 Temperature -Last 24 Hours Temperature 98.5 F Temperature 99.2 F Temperature 98 F Temperature 98.4 F Results - Labs CBC & Chem 7: 03/08/18 16:09 03/08/18 16:09 Labs: Abnormal lab results 03/08/18 03/08/18 03/08/18 Range/Units 16:09 16:09 16:09 MCV 80 L (84-94) fl MCH 27 L (28-32) pg RDW 17.0 H (13.2-15.2) % [place]elope % (Auto) 10.3 H (0.0-7.3) % Seg Neutrophils % 70.1 H (40.0-70.0) % D-Dimer 428.91 H (0-234) ng/mlDDU Chloride 96.4 L (98-107) mmol/L Glucose 182 H (75-100) mg/dL POC Glucose (70-105) Albumin (3.9-5) g/dL 03/08/18 03/08/18 03/09/18 Range/Units 16:09 23:57 07:30 MCV (84-94) fl MCH (28-32) pg RDW (13.2-15.2) % [place]elope % (Auto) (0.0-7.3) % Seg Neutrophils % (40.0-70.0) % D-Dimer (0-234) ng/mlDDU Chloride (98-107) mmol/L Glucose (75-100) mg/dL POC Glucose 231 H 145 H (70-105) Albumin 3.6 L (3.9-5) g/dL Assessment and Plan Assessment: 1) Acute LLE cellulitis. Wound cx from LLE in 2016 grew MSSA. 2) LLE venous stasis ulcer 3) Venous insufficiency BLE 4) DM type 2. 5) Morbid obesity 6) Vancomycin allergy Plan: -follow-up blood cultures. -Stop linezolid. -Start ancef and doxycycline. -Legs elevation -Wound care consult -d/w pt, RN. Thank you for your consultation, will follow up with you. Jane Booth MD Infectious Diseases Specialist [facility] ([facility]) M [phone]
[2018-03-09] MEDS: GLUCOPHAGE PO SCH ×2 (08:25→16:58)
[2018-03-09] MEDS: BUSPAR PO SCH ×3 (08:25→22:08)
[2018-03-09] MEDS: HALFPRIN EC PO SCH (09:19)
[2018-03-09] MEDS: LASIX PO SCH (09:19)
[2018-03-09] MEDS: PEPCID PO SCH ×2 (09:19→22:09)
[2018-03-09] MEDS: LEXAPRO PO SCH (09:20)
[2018-03-09] MEDS: PRAVACHOL PO SCH (09:20)
[2018-03-09] MEDS: DIOVAN PO SCH (09:21)
[2018-03-09] MEDS: NORVASC PO SCH (09:23)
[2018-03-09] MEDS ORDERED: AMLODIPINE PO SCH (10:00)
[2018-03-09] MEDS ORDERED: NON-FORMULARY (Pravastatin Sodium [Pravastatin] 40 MG) PO SCH (10:00)
[2018-03-09] MEDS ORDERED: CATAPRES-TTS PATCH TD SCH (10:00)
[2018-03-09] MEDS ORDERED: VALSARTAN PO SCH (10:00)
--- NOTE | 2018-03-09 10:36 | Consultation ---
History of Present Illness - Reason for Consult Consult date: 03/09/18 venous stasis ulcers - History of Present Illness Patient with a long-standing history of venous insufficiency. His venous ultrasound demonstrates no DVT. He has wounds in bilateral lower extremities and superimposed cellulitis causing him severe pain. In the past he had seen of vascular specialist but was unable to tolerate compression hose. He is not currently being treated at wound care. Past History Past Medical History: arthritis, diabetes, DVT, GERD, heart failure, hypertension, other (CVA) Past Surgical History: cholecystectomy, Other (pacemaker placement, shoulder surgery) Medications and Allergies Allergies Allergy/AdvReac Type Severity Reaction Status Date / Time vancomycin Allergy Shortness Verified 09/25/17 12:55 of Breath Home Medications Medication Instructions Recorded Confirmed Last Taken Type Insulin Glargine [Lantus VIAL] 25 unit SUB-Q HS 09/10/16 03/09/18 03/07/18 History Furosemide [Lasix TAB] 20 mg PO QDAY 02/24/17 03/09/18 03/07/18 History Furosemide [Lasix TAB] 20 mg PO QDAY 02/24/17 03/09/18 03/07/18 History Apixaban [Eliquis] 2.5 mg PO Q12HR #60 tablet 02/27/17 03/09/18 03/08/18 Rx Carvedilol [Coreg] 25 mg PO BID #60 tablet 02/27/17 03/09/18 03/07/18 Rx Pravastatin Sodium [Pravastatin] 40 mg PO DAILY #30 tablet 02/27/17 03/09/18 Rx metFORMIN [Glucophage] 500 mg PO BID #60 tablet 02/27/17 03/09/18 03/07/18 Rx Compression Socks, Medium [Futuro 1 each MC QDAY #1 pack 05/24/17 03/09/1803/08 Rx Restoring] Famotidine [Pepcid] 20 mg PO BID #10 tablet 06/22/17 03/09/18 03/07/18 Rx diphenhydrAMINE [Benadryl CAP] 50 mg PO QHS #5 capsule 06/22/17 03/09/18 23:00 Rx hydrOXYzine HCL [Atarax] 25 mg PO Q8H PRN #30 tablet 1103/09/18 03/08/18 Rx Active Meds: Active Medications Acetaminophen (Tylenol) 650 mg PO Q4H PRN PRN Reason: Pain MILD(1-3)/Fever >100.5/ROMERO Amlodipine Besylate (Norvasc) 5 mg PO QDAY [facility] Last Admin: 03/09/18 09:23 Dose: 5 mg Apixaban (Eliquis) 2.5 mg PO Q12HR [facility]; Protocol Last Admin: 03/09/18 09:19 Dose: 2.5 mg Aspirin (Halfprin Ec) 81 mg PO QDAY [facility] Last Admin: 03/09/18 09:19 Dose: 81 mg Buspirone HCl (Buspar) 10 mg PO TID [facility] Last Admin: 03/09/18 08:25 Dose: 10 mg Carvedilol (Coreg) 25 mg PO BID [facility] Last Admin: 03/09/18 09:20 Dose: 25 mg Cholestyramine Resin (Questran) 4 gm PO QID PRN PRN Reason: Diarrhea Clonazepam (Klonopin) 0.5 mg PO BID PRN PRN Reason: Anxiety Clonidine HCl (Catapres-Tts Patch) 0.2 mg TD We [facility] Last Admin: 03/09/18 09:22 Dose: 0.2 mg Diphenhydramine HCl (Benadryl) 50 mg PO QHS [facility] Escitalopram Oxalate (Lexapro) 20 mg PO DAILY [facility] Last Admin: 03/09/18 09:20 Dose: 20 mg Famotidine (Pepcid) 20 mg PO BID [facility] Last Admin: 03/09/18 09:19 Dose: 20 mg Furosemide (Lasix) 20 mg PO QDAY [facility] Last Admin: 03/09/18 09:19 Dose: 20 mg Hydroxyzine HCl (Atarax) 25 mg PO Q8H PRN PRN Reason: Itching Last Admin: 03/09/18 00:35 Dose: 25 mg Cefazolin Sodium (Ancef/Sterile Water 2 Gm/20 Ml) 2 gm in 20 mls @ 20 mls/10 min IV Q8HR [facility]; Protocol Doxycycline Hyclate 100 mg/ (Sodium Chloride) 250 mls @ 250 mls/hr IV Q12HR [facility] ; Protocol Insulin Glargine (Lantus) 25 units SUB-Q HS [facility] Last Admin: 03/09/18 00:33 Dose: 25 units Insulin Human Lispro (Humalog) 0 unit SUB-Q ACHS [facility]; Protocol Last Admin: 03/09/18 08:24 Dose: Not Given Metformin HCl (Glucophage) 500 mg PO BIDDIAB [facility] Last Admin: 03/09/18 08:25 Dose: 500 mg Miscellaneous Medication (Triamcinolone Acetonide [Triamcinolone 0.1% Lotion]) 60 ml TP BID [facility] Morphine Sulfate (Morphine) 4 mg IV Q4H PRN PRN Reason: Pain, Moderate (4-6) Ondansetron HCl (Zofran) 4 mg IV Q8H PRN PRN Reason: Nausea And Vomiting Oxycodone/Acetaminophen (Percocet 5/325) 1 tab PO Q6H PRN PRN Reason: Pain, Moderate (4-6) Last Admin: 03/09/18 00:34 Dose: 1 tab Pravastatin Sodium (Pravachol) 40 mg PO DAILY [facility] Last Admin: 03/09/18 09:20 Dose: 40 mg Sodium Chloride (Sodium Chloride Flush Syringe 10 Ml) 10 ml IV BID [facility] Sodium Chloride (Sodium Chloride Flush Syringe 10 Ml) 10 ml IV PRN PRN PRN Reason: LINE FLUSH Trazodone HCl (Desyrel) 50 mg PO QHS [facility] Valsartan (Diovan) 160 mg PO QDAY [facility] Last Admin: 03/09/18 09:21 Dose: 160 mg Zolpidem Tartrate (Ambien) 5 mg PO QHS PRN PRN Reason: Insomnia Review of Systems All systems: negative Exam - Constitutional Vitals: Temp Pulse Resp BP Pulse Ox 98.5 F 72 20 131/71 91 03/09/18 02:55 03/09/18 09:23 03/09/18 02:55 03/09/18 09:23 03/09/18 07:23 General appearance: Present: no acute distress - EENT Eyes: Present: PERRL ENT: hearing intact - Neck Neck: Present: supple, normal ROM - Respiratory Respiratory effort: normal - Extremities Extremity abnormal: edema, ulceration - Abdominal General gastrointestinal: Present: deferred Male genitourinary: Present: deferred - Rectal Rectal Exam: deferred - Psychiatric Psychiatric: appropriate mood/affect, cooperative Results - Labs CBC & Chem 7: 03/08/18 16:09 03/08/18 16:09 Labs: Abnormal lab results 03/08/18 03/08/18 03/08/18 Range/Units 16:09 16:09 16:09 MCV 80 L (84-94) fl MCH 27 L (28-32) pg RDW 17.0 H (13.2-15.2) % [place]owell % (Auto) 10.3 H (0.0-7.3) % Seg Neutrophils % 70.1 H (40.0-70.0) % D-Dimer 428.91 H (0-234) ng/mlDDU Chloride 96.4 L (98-107) mmol/L Glucose 182 H (75-100) mg/dL POC Glucose (70-105) Albumin (3.9-5) g/dL 03/08/18 03/08/18 03/09/18 Range/Units 16:09 23:57 07:30 MCV (84-94) fl MCH (28-32) pg RDW (13.2-15.2) % [place]cdowell % (Auto) (0.0-7.3) % Seg Neutrophils % (40.0-70.0) % D-Dimer (0-234) ng/mlDDU Chloride (98-107) mmol/L Glucose (75-100) mg/dL POC Glucose 231 H 145 H (70-105) Albumin 3.6 L (3.9-5) g/dL Assessment and Plan Patient will need to follow up with us as an outpatient and be placed in compression hose. He will likely need treatment of both the superficial and deep venous systems for venous insufficiency. Additionally, the patient will need a referral to wound care to speed his wound healing is able likely need compressive wound care.
[2018-03-09] MEDS: SODIUM CHLORIDE FLUSH SYRINGE 10 ML IV SCH ×2 (11:25→22:12)
[2018-03-09] MEDS: ANCEF/STERILE WATER 2 GM/20 ML 2 GM/20 ML SYRINGE IV SCH ×3 (11:25→22:11)
[2018-03-09] MEDS: DOXYCYCLINE HYCLATE 100 MG in NACL 0.9% 250ML 250 ML IV SCH ×2 (11:54→22:14)
[2018-03-09] MEDS: SODIUM CHLORIDE FLUSH SYRINGE 10 ML IV PRN (14:44)
--- NOTE | 2018-03-09 20:25 | Progress Note ---
Assessment and Plan - Patient Problems (1) Cellulitis of left leg Current Visit: Yes Status: Acute Plan to address problem: follow-up blood cultures. -Stop linezolid. -Started ancef and doxycycline.by ID -Legs elevation -Wound care consult (2) Venous stasis Current Visit: Yes Status: Acute Plan to address problem: Patient will need to follow up with Vascular surgery/IR as an outpatient and be placed in compression hose. He will likely need treatment of both the superficial and deep venous systems for venous insufficiency. Additionally, the patient will need a referral to wound care to speed his wound healing and likely need compressive wound care. (3) IDDM (insulin dependent diabetes mellitus) Current Visit: Yes Status: Chronic Plan to address problem: Tight control Ac Coverage (4) HTN (hypertension) Current Visit: Yes Status: Chronic Qualifiers: Hypertension type: essential hypertension Qualified Code(s): I10 - Essential (primary) hypertension Plan to address problem: Cont antihypertensives (5) Depression Current Visit: Yes Status: Chronic Qualifiers: Depression Type: unspecified Qualified Code(s): F32.9 - Major depressive disorder, single episode, unspecified Plan to address problem: Cont antidepressants (6) DVT prophylaxis Current Visit: No Status: Acute Plan to address problem: On Heparin (7) Discharge planning issues Current Visit: Yes Status: Acute Plan to address problem: Patient has wound care appointment on March 11February have to reschedule Subjective Date of service: 03/09/18 Principal diagnosis: LLE cellulitis Interval history: Pain better Objective - Constitutional Vitals: Vital Signs - 12hr 03/09/18 03/09/18 03/09/18 09:16 09:20 09:21 Temperature Pulse Rate 72 72 Respiratory Rate Blood Pressure 131/71 131/71 131/71 O2 Sat by Pulse Oximetry 03/09/18 03/09/18 03/09/18 09:22 09:23 14:41 Temperature 98.7 F Pulse Rate 72 72 81 Respiratory 20 Rate Blood Pressure 131/71 131/71 135/64 O2 Sat by Pulse 90 Oximetry General appearance: Present: no acute distress, well-nourished - EENT Eyes: PERRL, EOM intact ENT: hearing intact, clear oral mucosa Ears: bilateral: normal - Neck Neck: supple, normal ROM - Respiratory Respiratory effort: normal Respiratory: bilateral: CTA - Breasts Breasts: normal - Cardiovascular Rhythm: regular Heart Sounds: Present: S1 & S2. Absent: gallop, rub Extremities: pulses intact, No edema, normal color, abnormal (Open wound - extensive from knee to dorsum of foot LLE with redness) - Gastrointestinal General gastrointestinal: Present: soft, non-tender, non-distended, normal bowel sounds - Genitourinary Male genitourinary: normal - Integumentary Integumentary: clear, warm, dry - Musculoskeletal Musculoskeletal: 1, strength equal bilaterally - Neurologic Neurologic: moves all extremities - Psychiatric Psychiatric: memory intact, appropriate mood/affect, intact judgment & insight - Labs CBC & Chem 7: 03/08/18 16:09 03/08/18 16:09 Labs: Abnormal lab results 03/08/18 03/09/18 03/09/18 Range/Units 23:57 07:30 11:23 POC Glucose 231 H 145 H 183 H (70-105) 03/09/18 Range/Units 16:32 POC Glucose 198 H (70-105)
[2018-03-09] MEDS: DESYREL PO SCH (22:08)
[2018-03-09] MEDS: BENADRYL PO SCH (22:09)
[2018-03-09] MEDS: KENALOG TP SCH (23:28)
[2018-03-10] MEDS: HumaLOG SUB-Q SCH ×4 (07:30→22:28)
--- NOTE | 2018-03-10 07:41 | Progress Note ---
Assessment and Plan Assessment: 1) Acute LLE cellulitis. Wound cx 03/09 with S aureus. -Venous doppler US negative for DVT. -H/o MSSA in wound cx in 2016. 2) LLE venous stasis ulcer 3) Venous insufficiency BLE 4) DM type 2. 5) Morbid obesity 6) Vancomycin allergy. Rash. Plan: -follow-up blood cultures -Will f/u sensitivities of S aureus. -Continue ancef and doxycycline D2, pending S aureus sensitivities. -Legs elevation. -Continue wound care. -d/w pt, RN. Thank you for your consultation, will follow up with you. Jane Booth MD Infectious Diseases Specialist [facility] ([facility]) M [phone] Subjective Date of service: 03/10/18 Principal diagnosis: LLE cellulitis Interval history: Afebrile. Feels well. LLE pain is improving. Denies F/C, N/V/D, cough, SOB, dysuria. Microbiology: Blood cultures: 03/08 NGTD Urine culture 03/08 NGTD Wound culture 03/08 (Left leg) S. aureus. Current Antimicrobials: Cefazolin 03/09- Doxycycline 03/09- Previous Antimicrobials: Ancef x 1 03/08 Linezolid 03/08-03/09 Objective - Exam Narrative Exam: General appearance: Obese male, in NAD, A&Ox3. Eyes: anicteric sclerae, moist conjunctivae; no lid-lag; PERRLA HENT: Atraumatic; oropharynx clear with moist mucous membranes and no mucosal ulcerations/no oral thrush; normal hard and soft palate. Normal external ears. Neck: Trachea midline; supple, no thyromegaly or lymphadenopathy Lungs: CTA, with normal respiratory effort and no intercostal retractions CV: RRR. S1,S2. Left pacemaker, no erythema, tenderness or drainage. Abdomen: Obese. +BS. Soft, NT/ND. Extremities: BLE venous stasis dermatitis. Mild BLE edema. LLE with dressing. Skin: As above. Psych: Appropriate affect, alert and oriented to person, place and time. Neuro: alert and oriented x 3. Moving all extremities Lines: PIV - Constitutional Vitals: Vital Signs Temp Pulse Resp BP Pulse Ox 98.9 F 79 20 133/77 95 03/10/18 02:42 03/10/18 02:42 03/10/18 02:42 03/10/18 02:42 03/10/18 02:42 Temperature -Last 24 Hours Temperature 98.9 F Temperature 98.3 F Temperature 98.7 F - Labs CBC & Chem 7: 03/08/18 16:09 03/08/18 16:09 Labs: Abnormal lab results 03/09/18 03/09/18 03/09/18 Range/Units 07:30 11:23 16:32 POC Glucose 145 H 183 H 198 H (70-105) 03/09/18 Range/Units 22:10 POC Glucose 174 H (70-105)
--- NOTE | 2018-03-10 09:36 | Query-Infection ---
Dear Date:__03/10/2018 It Analyst/CDS:___Angela Phone#:__[phone] Exercise your independent professional judgment when responding to this query. Questions asked do not imply a particular answer is desired or expected. We greatly appreciate your clarification on this issue. Clinical Documentation States: 67 Year old male was admitted on 03/08/2018 for increased redness, pain and warmth of his left leg. The IM (Dr. Rodriguez) progress note on 03/09/2018 states "Assessment and Plan - Patient Problems (1) Cellulitis of left leg Current Visit: Yes Status: Acute Plan to address problem: follow-up blood cultures. -Stop linezolid. -Started ancef and doxycycline.by ID -Legs elevation -Wound care consult." Clinical findings show: (please check applicable parameters) MS (03/08): 93 RR (03/08): 22 Infection, known /suspected, with some of the following indicators; Specify the infection: 3 General parameters [ ] Fever (core temp >38.30C or 100.40F) [ ] Hypothermia (core temp <36C) [X] Heart rate >90 bpm [X] Tachypnea: >20 bpm or pCO2 < 32 mmHg [ ] Altered mental status [ ] Significant edema / +ve fluid balance (>20 ml/kg 24 h) [ ] Hyperglycemia (Bl. glucose >110 mg/dl) w/o diabetes Inflammatory parameters [ ] Leukocytosis (white blood cell count >12,000/l) [ ] Leukopenia (white blood cell count <4,000/l) [ ] Bandemia (immature WBC > 10%) [ ] Leucocyte Left Shift [ ] Plasma procalcitonin>2 SD above the normal value Hemodynamic and tissue perfusion parameters [ ] Arterial hypotension(SBP <90 mmHg, MAP <70 mmHg,or a SBP drop >40 mmHg in adults) [ ] Hyperlactatemia (>3 mmol/l) [ ] Anion Gap (> 11mEG/l) [ ] Decreased capillary refill or mottling Organ dysfunction parameters [ ] Arterial hypoxemia (PaO2/FIO2 <300) [ ] Creatinine increase =0.5 mg/dl [ ] Acute oliguria (urine output <0.5 ml | kg |h or 45 mM/l for at least 2 hrs) [ ] Coagulation abnormalities (INR >1.5 or activated partial thromboplastin time >60 s) [ ] Ileus (absent antonio wel sounds) [ ] Thrombocytopenia (platelet count <100,000/l) [ ] Hyperbilirubinemia (plasma total bilirubin >4 mg/dl) According to the clinical indications above, can Bacteremia be further specified? If so, please indicate below and in your Progress Notes and/ or Discharge Summary. Indicate if the condition was present on admission. PHYSICIAN RESPONSE: [ ] Sepsis [ ] Severe Sepsis [ ] Septic Shock [ ] Septicemia [ ] Sepsis now resolved [ ] SIRS due to non-infectious cause with organ dysfunction [ ] SIRS due to non-infectious cause without organ dysfunction [ ] Other: [ ] Comment/Explanation: Present on Admission: [ ] Yes (Y) [ ] Clinically undeterminable (W) [ ] No ( N) [ ] Ruled Out Please also document response in your Progress Notes and/or Discharge Summary and indicate if the condition was present on admission Notes: SIRS/ SIRS WITH ORGAN DYSFUNCTION Systemic inflammatory response syndrome (SIRS) generally refers to the systemic response to trauma/pinzon or other insult such as Acute Myocardial Infarction, Acute Pancreatitis, and Major Surgery with symptoms including fever, tachycardia , tachypnea, and leukocytosis (1). BACTEREMIA Presence of viable bacteria in the circulating blood (2). This term is reserved for patients that do not manifest above SIRS response. SEPTICEMIA Generally refers to a systemic disease associated with the presence of pathological microorganisms or toxins in the blood, which can include bacteria, viruses, fungi or other organisms (1). SEPSIS Generally refers to SIRS due infection (1). SEVERE SEPSIS Generally refers to sepsis associated with acute organ dysfunction (1). SEPTIC SHOCK Generally refers to circulatory failure associated with severe sepsis (2), and defined as hypotension or hypoperfusion despite adequate fluid resuscitation (1 hour) (3). REFERENCES: 1. [employer]/Society of Critical Care Medicine Consensus Conference. Definitions for sepsis and organ failure and guidelines for the use of innovative therapies in sepsis. Critical Care Med 1992;20:864 - 74. 2. Panchito y MM, Klaudia MP, Kobe JUAN A, Kin E, Anton D, Chas D, Best J, Mackey SM , Juan José JL, Corrina G; International Sepsis Definitions Conference. 2001 SCCM/ESICM/ACCP/ATS/SIS International Sepsis Definitions Conference. Intensive Care Med. 2002 Apr;29(4):530-8. Epub 2002Jan 05. Review. PubMed PMID:[id number] 3. ICD-9-CM Official Guidelines for Coding and Reporting 4. Medscape Drugs, Diseases and Procedures references 5. [employer] Textbook of Internal Medicine. 18th Edition MTDD
[2018-03-10] MEDS: KENALOG TP SCH ×2 (10:25→22:31)
[2018-03-10] MEDS: DIOVAN PO SCH (10:25)
[2018-03-10] MEDS: SODIUM CHLORIDE FLUSH SYRINGE 10 ML IV SCH ×2 (10:25→22:32)
[2018-03-10] MEDS: PEPCID PO SCH ×2 (10:26→22:29)
[2018-03-10] MEDS: HALFPRIN EC PO SCH (10:26)
[2018-03-10] MEDS: LEXAPRO PO SCH (10:26)
[2018-03-10] MEDS: COREG PO SCH ×2 (10:26→22:29)
[2018-03-10] MEDS: PRAVACHOL PO SCH (10:27)
[2018-03-10] MEDS: ELIQUIS PO SCH ×2 (10:27→22:30)
[2018-03-10] MEDS: NORVASC PO SCH (10:27)
[2018-03-10] MEDS: LASIX PO SCH (10:27)
[2018-03-10] MEDS: BUSPAR PO SCH ×3 (10:33→22:29)
[2018-03-10] MEDS: GLUCOPHAGE PO SCH ×2 (10:33→16:38)
[2018-03-10] MEDS: DOXYCYCLINE HYCLATE 100 MG in NACL 0.9% 250ML 250 ML IV SCH ×2 (10:33→22:32)
[2018-03-10] MEDS: ANCEF/STERILE WATER 2 GM/20 ML 2 GM/20 ML SYRINGE IV SCH ×3 (13:25→22:28)
--- NOTE | 2018-03-10 16:23 | Consultation ---
History of Present Illness Consult date: 03/10/18 Consult reason: shortness of breath History of present illness: The patient is a 67-year-old man with multiple medical problems. He has morbid obesity, sleep apnea, chronic venous stasis and an indwelling cardiac pacemaker. His cardiac pacemaker was implanted for paroxysmal atrial fibrillation and sick sinus syndrome. He is on chronic oral anticoagulation with Eliquis. He has had extensive coronary disease workup included a cardiac catheterization 3 years ago that demonstrated no significant coronary artery disease and normal left ventricular systolic function with ejection fraction 55- 60%. He presents to the hospital at this time with increasing bilateral leg pain, associated with worsening venous stasis and evidence of chronic cellulitis and ulceration of both lower legs. Cardiovascular consultation was for "congestive heart failure", but on further evaluation, the chest x-ray reports clear well- expanded lungs no evidence of heart failure, and patient has no cardiac symptoms. He is currently comfortable on the medical floor, supine bedrest with no complaints. Past History Past Medical History: atrial fib, arthritis, diabetes, DVT, GERD, hypertension, other (CVA) Past Surgical History: cholecystectomy, Other (pacemaker placement, shoulder surgery) Medications and Allergies Allergies Allergy/AdvReac Type Severity Reaction Status Date / Time vancomycin Allergy Shortness Verified 09/25/17 12:55 of Breath Home Medications Medication Instructions Recorded Confirmed Last Taken Type Insulin Glargine [Lantus VIAL] 25 unit SUB-Q HS 09/10/16 03/09/18 03/07/18 History Furosemide [Lasix TAB] 20 mg PO QDAY 02/24/17 03/09/18 03/07/18 History Furosemide [Lasix TAB] 20 mg PO QDAY 02/24/17 03/09/18 03/07/18 History Apixaban [Eliquis] 2.5 mg PO Q12HR #60 tablet 02/27/17 03/09/18 03/08/18 Rx Carvedilol [Coreg] 25 mg PO BID #60 tablet 02/27/17 03/09/18 03/07/18 Rx Pravastatin Sodium [Pravastatin] 40 mg PO DAILY #30 tablet 02/27/17 03/09/18 Rx metFORMIN [Glucophage] 500 mg PO BID #60 tablet 02/27/17 03/09/18 03/07/18 Rx Compression Socks, Medium [Futuro 1 each MC QDAY #1 pack 05/24/17 03/09/1803/08 Rx Restoring] Famotidine [Pepcid] 20 mg PO BID #10 tablet 06/22/17 03/09/18 03/07/18 Rx diphenhydrAMINE [Benadryl CAP] 50 mg PO QHS #5 capsule 06/22/17 03/09/18 23:00 Rx hydrOXYzine HCL [Atarax] 25 mg PO Q8H PRN #30 tablet 08/11/17 03/09/18 03/08/18 Rx Active Meds: Active Medications Acetaminophen (Tylenol) 650 mg PO Q4H PRN PRN Reason: Pain MILD(1-3)/Fever >100.5/ROMERO Amlodipine Besylate (Norvasc) 5 mg PO QDAY [facility] Last Admin: 03/10/18 10:27 Dose: 5 mg Apixaban (Eliquis) 2.5 mg PO Q12HR [facility]; Protocol Last Admin: 03/10/18 10:27 Dose: 2.5 mg Aspirin (Halfprin Ec) 81 mg PO QDAY [facility] Last Admin: 03/10/18 10:26 Dose: 81 mg Buspirone HCl (Buspar) 10 mg PO TID [facility] Last Admin: 03/10/18 13:24 Dose: 10 mg Carvedilol (Coreg) 25 mg PO BID [facility] Last Admin: 03/10/18 10:26 Dose: 25 mg Cholestyramine Resin (Questran) 4 gm PO QID PRN PRN Reason: Diarrhea Clonazepam (Klonopin) 0.5 mg PO BID PRN PRN Reason: Anxiety Clonidine HCl (Catapres-Tts Patch) 0.2 mg TD We [facility] Last Admin: 03/09/18 09:22 Dose: 0.2 mg Diphenhydramine HCl (Benadryl) 50 mg PO QHS [facility] Last Admin: 03/09/18 22:09 Dose: 50 mg Escitalopram Oxalate (Lexapro) 20 mg PO DAILY [facility] Last Admin: 03/10/18 10:26 Dose: 20 mg Famotidine (Pepcid) 20 mg PO BID [facility] Last Admin: 03/10/18 10:26 Dose: 20 mg Furosemide (Lasix) 20 mg PO QDAY [facility] Last Admin: 03/10/18 10:27 Dose: 20 mg Hydroxyzine HCl (Atarax) 25 mg PO Q8H PRN PRN Reason: Itching Last Admin: 03/09/18 00:35 Dose: 25 mg Cefazolin Sodium (Ancef/Sterile Water 2 Gm/20 Ml) 2 gm in 20 mls @ 20 mls/10 min IV Q8HR [facility]; Protocol Last Admin: 03/10/18 13:25 Dose: 20 mls/10 min Doxycycline Hyclate 100 mg/ (Sodium Chloride) 250 mls @ 250 mls/hr IV Q12HR [facility] ; Protocol Last Admin: 03/10/18 10:33 Dose: 250 mls/hr Insulin Glargine (Lantus) 25 units SUB-Q HS [facility] Last Admin: 03/09/18 22:12 Dose: 25 units Insulin Human Lispro (Humalog) 0 unit SUB-Q ACHS [facility]; Protocol Last Admin: 03/10/18 11:57 Dose: 2 unit Metformin HCl (Glucophage) 500 mg PO BIDDIAB [facility] Last Admin: 03/10/18 10:33 Dose: 500 mg Morphine Sulfate (Morphine) 4 mg IV Q4H PRN PRN Reason: Pain, Moderate (4-6) Ondansetron HCl (Zofran) 4 mg IV Q8H PRN PRN Reason: Nausea And Vomiting Oxycodone/Acetaminophen (Percocet 5/325) 1 tab PO Q6H PRN PRN Reason: Pain, Moderate (4-6) Last Admin: 03/09/18 00:34 Dose: 1 tab Pravastatin Sodium (Pravachol) 40 mg PO DAILY [facility] Last Admin: 03/10/18 10:27 Dose: 40 mg Sodium Chloride (Sodium Chloride Flush Syringe 10 Ml) 10 ml IV BID [facility] Last Admin: 03/10/18 10:25 Dose: 10 ml Sodium Chloride (Sodium Chloride Flush Syringe 10 Ml) 10 ml IV PRN PRN PRN Reason: LINE FLUSH Last Admin: 03/09/18 14:44 Dose: 10 ml Trazodone HCl (Desyrel) 50 mg PO QHS [facility] Last Admin: 03/09/18 22:08 Dose: 50 mg Triamcinolone Acetonide (Kenalog) 1 applic TP BID [facility] Last Admin: 03/10/18 10:25 Dose: 1 applic Valsartan (Diovan) 160 mg PO QDAY [facility] Last Admin: 03/10/18 10:25 Dose: 160 mg Zolpidem Tartrate (Ambien) 5 mg PO QHS PRN PRN Reason: Insomnia Review of Systems Cardiovascular: edema, shortness of breath, no chest pain, no orthopnea, no palpitations, no rapid/irregular heart beat, no syncope, no lightheadedness Physical Examination Vital Signs Temp Pulse Resp BP Pulse Ox 98.4 F 93 H 22 138/100 97 03/08/18 15:24 03/08/18 15:24 03/08/18 15:24 03/08/18 15:24 03/08/18 15:24 General appearance: no acute distress HEENT: Positive: PERRL Neck: Positive: neck supple Cardiac: Positive: Reg Rate and Rhythm Lungs: Positive: Decreased Breath Sounds Neuro: Positive: Grossly Intact Abdomen: Positive: Soft Male genitourinary: Positive: deferred Skin: Positive: Clear Extremities: Present: +1 Edema Results 03/08/18 16:09 03/08/18 16:09 Assessment and Plan - Patient Problems (1) Cellulitis of left leg Current Visit: Yes Status: Acute Plan to address problem: Patient presented with cellulitis of bilateral lower legs, associated with chronic stasis changes and chronic ulceration. I will defer to the internal medical service for evaluation and management. (2) Paroxysmal atrial fibrillation Current Visit: Yes Status: Acute Plan to address problem: Patient has indwelling cardiac pacemaker, continue medical therapy and chronic oral anticoagulation.
--- NOTE | 2018-03-10 17:18 | Progress Note ---
Assessment and Plan - Patient Problems (1) Cellulitis of left leg Current Visit: Yes Status: Acute Plan to address problem: follow-up blood cultures. -Stop linezolid. -Started ancef and doxycycline.by ID -Legs elevation -Wound care consult (2) Venous stasis Current Visit: Yes Status: Acute Plan to address problem: Patient will need to follow up with Vascular surgery/IR as an outpatient and be placed in compression hose. He will likely need treatment of both the superficial and deep venous systems for venous insufficiency. Additionally, the patient will need a referral to wound care to speed his wound healing and likely need compressive wound care. (3) IDDM (insulin dependent diabetes mellitus) Current Visit: Yes Status: Chronic Plan to address problem: Tight control Ac Coverage (4) HTN (hypertension) Current Visit: Yes Status: Chronic Qualifiers: Hypertension type: essential hypertension Qualified Code(s): I10 - Essential (primary) hypertension Plan to address problem: Cont antihypertensives (5) Depression Current Visit: Yes Status: Chronic Qualifiers: Depression Type: unspecified Qualified Code(s): F32.9 - Major depressive disorder, single episode, unspecified Plan to address problem: Cont antidepressants (6) DVT prophylaxis Current Visit: No Status: Acute Plan to address problem: On Heparin (7) Discharge planning issues Current Visit: Yes Status: Acute Plan to address problem: Patient has wound care appointment on March 11February have to reschedule Subjective Date of service: 03/10/18 Principal diagnosis: LLE cellulitis Interval history: Pain better Objective - Constitutional Vitals: Vital Signs - 12hr 03/10/18 03/10/18 03/10/18 07:27 10:25 10:26 Temperature 98.6 F Pulse Rate 77 71 77 Respiratory 18 Rate Blood Pressure 139/77 139/77 139/77 O2 Sat by Pulse 93 Oximetry 03/10/18 13:54 Temperature 97.3 F L Pulse Rate 80 Respiratory 20 Rate Blood Pressure 114/74 O2 Sat by Pulse 93 Oximetry General appearance: Present: no acute distress, well-nourished - EENT Eyes: PERRL, EOM intact ENT: hearing intact, clear oral mucosa Ears: bilateral: normal - Neck Neck: supple, normal ROM - Respiratory Respiratory effort: normal Respiratory: bilateral: CTA - Breasts Breasts: normal - Cardiovascular Rhythm: regular Heart Sounds: Present: S1 & S2. Absent: gallop, rub Extremities: pulses intact, No edema, normal color, Full ROM - Gastrointestinal General gastrointestinal: Present: soft, non-tender, non-distended, normal bowel sounds - Genitourinary Male genitourinary: normal - Integumentary Integumentary: clear, warm, dry - Musculoskeletal Musculoskeletal: 1, strength equal bilaterally - Neurologic Neurologic: moves all extremities - Psychiatric Psychiatric: memory intact, appropriate mood/affect, intact judgment & insight - Labs CBC & Chem 7: 03/08/18 16:09 03/08/18 16:09 Labs: Abnormal lab results 03/09/18 03/10/18 03/10/18 Range/Units 22:10 07:34 11:25 POC Glucose 174 H 124 H 191 H (70-105) 03/10/18 Range/Units 16:13 POC Glucose 192 H (70-105)
[2018-03-10] MEDS: LANTUS SUB-Q SCH (22:29)
[2018-03-10] MEDS: DESYREL PO SCH (22:30)
[2018-03-10] MEDS: BENADRYL PO SCH (22:30)
[2018-03-11] MEDS: ANCEF/STERILE WATER 2 GM/20 ML 2 GM/20 ML SYRINGE IV SCH ×3 (05:15→22:31)
[2018-03-11] MEDS: HumaLOG SUB-Q SCH ×4 (08:02→22:00)
[2018-03-11] MEDS: BUSPAR PO SCH ×3 (08:07→20:00)
[2018-03-11] MEDS: GLUCOPHAGE PO SCH ×2 (08:07→16:29)
--- NOTE | 2018-03-11 08:09 | Progress Note ---
Assessment and Plan Assessment: 1) Acute LLE cellulitis. Wound cx 03/09 with S aureus. -Venous doppler US negative for DVT. -H/o MSSA in wound cx in 2016. 2) ANTHONY venous stasis dermatitis with LLE venous stasis ulcers. 3) Venous insufficiency BLE. 4) DM type 2. 5) Morbid obesity 6) Vancomycin allergy. Rash. Plan: -Awaiting sensitivities of S aureus. -Continue ancef and doxycycline (D3), pending S aureus sensitivities. -If S aureus is MSSA, ok to send home on keflex 500 mg PO q6h for 7 days. -Legs elevation. -Needs to follow up at the wound care center. -d/w pt, RN. Thank you for your consultation, will follow up with you. Jane Booth MD Infectious Diseases Specialist [facility] ([facility]) M [phone] Subjective Date of service: 03/11/18 Principal diagnosis: LLE cellulitis Interval history: Afebrile. Feels well. LLE pain is 3/10. Denies F/C, N/V/D, cough, SOB, dysuria. Microbiology: Blood cultures: 03/08 NGTD Urine culture 03/08 Neg Wound culture 03/08 (Left leg) S. aureus. Current Antimicrobials: Cefazolin 03/09- Doxycycline 03/09- Previous Antimicrobials: Ancef x 1 03/08 Linezolid 03/08-03/09 Objective - Exam Narrative Exam: General appearance: Obese male, in NAD, A&Ox3. Eyes: anicteric sclerae, moist conjunctivae; no lid-lag; PERRLA HENT: Atraumatic; oropharynx clear with moist mucous membranes and no mucosal ulcerations/no oral thrush; normal hard and soft palate. Normal external ears. Neck: Trachea midline; supple, no thyromegaly or lymphadenopathy Lungs: CTA, with normal respiratory effort and no intercostal retractions CV: RRR. S1,S2. Left pacemaker, no erythema, tenderness or drainage. Abdomen: Obese. +BS. Soft, NT/ND. Extremities: BLE venous stasis dermatitis. +BLE edema. LLE with multiple small ulcers with serous drainage. LLE with drecreased erythema and less warm to touch. Skin: As above. Psych: Appropriate affect, alert and oriented to person, place and time. Neuro: alert and oriented x 3. Moving all extremities Lines: PIV - Constitutional Vitals: Vital Signs Temp Pulse Resp BP Pulse Ox 98.6 F 88 20 134/74 94 03/11/18 03:07 03/11/18 02:00 03/11/18 03:07 03/11/18 03:07 03/11/18 02:00 Temperature -Last 24 Hours Temperature 98.6 F Temperature 97.6 F Temperature 97.3 F - Labs CBC & Chem 7: 03/08/18 16:09 03/08/18 16:09 Labs: Abnormal lab results 03/10/18 03/10/18 03/10/18 Range/Units 07:34 11:25 16:13 POC Glucose 124 H 191 H 192 H (70-105) 03/10/18 03/11/18 Range/Units 22:13 07:35 POC Glucose 190 H 140 H (70-105)
[2018-03-11] MEDS: PRAVACHOL PO SCH (09:52)
[2018-03-11] MEDS: ELIQUIS PO SCH ×2 (09:54→22:19)
[2018-03-11] MEDS: LEXAPRO PO SCH (09:54)
[2018-03-11] MEDS: HALFPRIN EC PO SCH (09:55)
[2018-03-11] MEDS: DIOVAN PO SCH (09:56)
[2018-03-11] MEDS: COREG PO SCH ×2 (09:56→22:18)
[2018-03-11] MEDS: NORVASC PO SCH (09:57)
[2018-03-11] MEDS: PEPCID PO SCH ×2 (09:57→22:18)
[2018-03-11] MEDS: LASIX PO SCH (09:58)
[2018-03-11] MEDS: SODIUM CHLORIDE FLUSH SYRINGE 10 ML IV SCH ×2 (09:58→22:02)
[2018-03-11] MEDS: KENALOG TP SCH ×2 (10:00→22:00)
[2018-03-11] MEDS: DOXYCYCLINE HYCLATE 100 MG in NACL 0.9% 250ML 250 ML IV SCH (10:10)
--- NOTE | 2018-03-11 11:31 | Progress Note ---
Assessment and Plan 1) Acute LLE cellulitis. Wound cx 03/09 with S aureus. -Venous doppler US negative for DVT. -H/o MSSA in wound cx in 2016. 2) ANTHONY venous stasis dermatitis with LLE venous stasis ulcers. 3) Venous insufficiency BLE. 4) DM type 2. 5) Morbid obesity 6) Paroxysmal afib on eliquis \ 7)SSS s/p PPM Blood cultures so far - no growth Recommendations: Cardiac stable Subjective Date of service: 03/11/18 Principal diagnosis: LLE cellulitis Interval history: Patient denies chest pain or shortness of breath this morning Patient is not on tele Objective Vital Signs Temp Pulse Resp BP Pulse Ox 03/11/18 09:56 77 105/57 03/11/18 07:27 99.0 F 73 18 128/68 97 03/11/18 03:07 98.6 F 20 134/74 03/11/18 02:00 88 94 03/10/18 20:31 81 92 03/10/18 20:01 20 03/10/18 19:32 97.6 F 20 132/77 03/10/18 13:54 97.3 F L 80 20 114/74 93 - Physical Examination HEENT: Positive: PERRL Neck: Positive: neck supple Cardiac: Positive: Reg Rate and Rhythm Lungs: Positive: Normal Exam Neuro: Positive: Grossly Intact Abdomen: Positive: Soft Skin: Positive: Clear Extremities: Present: +1 Edema
--- NOTE | 2018-03-11 15:57 | Discharge Summary ---
Providers - Providers Date of Admission: 03/08/18 21:35 Date of discharge: 03/11/18 Attending physician: KELLEY SOLIS 03/08/18 23:06 Consult to Physician [CONS] Routine Comment: Consulting Provider: TENA BOOTH Physician Instructions: consult was called to Dr. Booth Reason For Exam: Cellulitis-Abx coverage Consult to Physician [CONS] Routine Comment: Consulting Provider: COLLEEN HAQ Physician Instructions: consult was called to dr. haq Reason For Exam: Venous insufficiency 03/08/18 23:11 Consult to Wound/ET Nurse [CONS] Routine Reason For Exam: wound eval 03/09/18 06:33 Consult to Wound/ET Nurse [CONS] Routine Reason For Exam: wound eval 03/09/18 15:52 Consult to Physician [CONS] Routine Comment: [facility] Consulting Provider: MILAGROS PILLAI Physician Instructions: CONSULT WAS CALLED TO [phone] Reason For Exam: CHF Primary care physician: [employer] Hospitalization Condition: Stable Hospital course: Assessment and Plan Patient Problems (1) Cellulitis of left leg Current Visit: Yes Status: Acute Plan to address problem: MSSA D/c on Keflex 500 qid for 10 days (2) Venous stasis Current Visit: Yes Status: Acute Plan to address problem: Patient will need to follow up with Vascular surgery/IR as an outpatient and be placed in compression hose. He will likely need treatment of both the superficial and deep venous systems for venous insufficiency. Additionally, the patient will need a referral to wound care to speed his wound healing and likely need compressive wound care. (3) IDDM (insulin dependent diabetes mellitus) Current Visit: Yes Status: Chronic Plan to address problem: Tight control Ac Coverage (4) HTN (hypertension) Current Visit: Yes Status: Chronic Qualifiers: Hypertension type: essential hypertension Qualified Code(s): I10 - Essential (primary) hypertension Plan to address problem: Cont antihypertensives (5) Depression Current Visit: Yes Status: Chronic Qualifiers: Depression Type: unspecified Qualified Code(s): F32.9 - Major depressive disorder, single episode, unspecified Plan to address problem: Cont antidepressants Disposition: TO HOME OR SELFCARE - Discharge Diagnoses (1) Cellulitis of left leg Status: Acute (2) Venous stasis Status: Acute (3) IDDM (insulin dependent diabetes mellitus) Status: Chronic (4) HTN (hypertension) Status: Chronic Qualifiers: Hypertension type: essential hypertension Qualified Code(s): I10 - Essential (primary) hypertension (5) Depression Status: Chronic Qualifiers: Depression Type: unspecified Qualified Code(s): F32.9 - Major depressive disorder, single episode, unspecified (6) DVT prophylaxis Status: Acute (7) Discharge planning issues Status: Acute Core Measure Documentation - Palliative Care Palliative Care/ Comfort Measures: Not Applicable - Core Measures Any of the following diagnoses?: none Exam - Constitutional Vitals: Temp Pulse Resp BP Pulse Ox 97.7 F 74 18 129/65 94 03/11/18 13:24 03/11/18 13:24 03/11/18 13:24 03/11/18 13:24 03/11/18 13:24 General appearance: Present: no acute distress, well-nourished - EENT Eyes: Present: PERRL ENT: hearing intact, clear oral mucosa - Neck Neck: Present: supple, normal ROM - Respiratory Respiratory effort: normal Respiratory: bilateral: CTA - Cardiovascular Heart Sounds: Present: S1 & S2. Absent: rub, click - Extremities Extremities: no ischemia, pulses intact, pulses symmetrical, No edema Peripheral Pulses: within normal limits - Abdominal General gastrointestinal: Present: soft, non-tender, non-distended, normal bowel sounds Male genitourinary: Present: normal - Rectal Rectal Exam: deferred - Integumentary Integumentary: Present: clear, warm, dry - Musculoskeletal Musculoskeletal: gait normal, strength equal bilaterally - Psychiatric Psychiatric: appropriate mood/affect, intact judgment & insight - Neurologic Neurologic: CNII-XII intact, moves all extremities - Allied Health Allied health notes reviewed: nursing, case management Plan Activity: no restrictions Diet: diabetic Follow up with: ANISH OKEEFE MD [Primary Care Provider] - 3-5 Days RIGO LANG MD [Staff Physician] - 7 Days
[2018-03-11] MEDS: BENADRYL PO SCH (22:19)
[2018-03-11] MEDS: DESYREL PO SCH (22:19)
[2018-03-11] MEDS: LANTUS SUB-Q SCH (22:21)
[2018-03-12] MEDS: ANCEF/STERILE WATER 2 GM/20 ML 2 GM/20 ML SYRINGE IV SCH ×2 (06:02→13:36)
[2018-03-12] MEDS: HumaLOG SUB-Q SCH ×2 (08:36→11:39)
[2018-03-12] MEDS: GLUCOPHAGE PO SCH (08:37)
[2018-03-12] MEDS: BUSPAR PO SCH ×2 (08:37→13:35)
[2018-03-12] MEDS: DIOVAN PO SCH (09:12)
[2018-03-12] MEDS: LEXAPRO PO SCH (09:13)
[2018-03-12] MEDS: PRAVACHOL PO SCH (09:13)
[2018-03-12] MEDS: PEPCID PO SCH (09:13)
[2018-03-12] MEDS: LASIX PO SCH (09:13)
[2018-03-12] MEDS: HALFPRIN EC PO SCH (09:13)
[2018-03-12] MEDS: ELIQUIS PO SCH (09:14)
[2018-03-12] MEDS: COREG PO SCH (09:14)
[2018-03-12] MEDS: NORVASC PO SCH (09:14)
[2018-03-12] MEDS: SODIUM CHLORIDE FLUSH SYRINGE 10 ML IV SCH (09:15)
[2018-03-12] MEDS: KENALOG TP SCH (09:17)
[2018-03-12 11:57] VITALS: BP 125/60
[2018-03-12] MEDS: SODIUM CHLORIDE FLUSH SYRINGE 10 ML IV PRN (13:37)
--- NOTE | 2018-03-12 14:38 | Progress Note ---
Assessment and Plan - Patient Problems (1) Cellulitis of left leg Current Visit: Yes Status: Acute Plan to address problem: follow-up blood cultures. -Stop linezolid. -Started ancef and doxycycline.by ID -Legs elevation -Wound care consult (2) Venous stasis Current Visit: Yes Status: Acute Plan to address problem: Patient will need to follow up with Vascular surgery/IR as an outpatient and be placed in compression hose. He will likely need treatment of both the superficial and deep venous systems for venous insufficiency. Additionally, the patient will need a referral to wound care to speed his wound healing and likely need compressive wound care. (3) IDDM (insulin dependent diabetes mellitus) Current Visit: Yes Status: Chronic Plan to address problem: Tight control Ac Coverage (4) HTN (hypertension) Current Visit: Yes Status: Chronic Qualifiers: Hypertension type: essential hypertension Qualified Code(s): I10 - Essential (primary) hypertension Plan to address problem: Cont antihypertensives (5) Depression Current Visit: Yes Status: Chronic Qualifiers: Depression Type: unspecified Qualified Code(s): F32.9 - Major depressive disorder, single episode, unspecified Plan to address problem: Cont antidepressants (6) DVT prophylaxis Current Visit: No Status: Acute Plan to address problem: On Heparin Subjective Date of service: 03/11/18 Principal diagnosis: LLE cellulitis Interval history: Pain better Objective - Constitutional Vitals: Vital Signs - 12hr 03/12/18 03/12/18 03/12/18 08:00 08:16 09:12 Temperature 98.4 F Pulse Rate 79 79 Pulse Rate [ Apical] Respiratory 18 Rate Blood Pressure 153/83 153/83 O2 Sat by Pulse 97 Oximetry 03/12/18 03/12/18 03/12/18 09:14 10:00 11:45 Temperature Pulse Rate 79 72 Pulse Rate [ 79 Apical] Respiratory 18 20 Rate Blood Pressure 153/83 125/60 O2 Sat by Pulse 97 91 Oximetry 03/12/18 11:57 Temperature 97.7 F Pulse Rate Pulse Rate [ Apical] Respiratory Rate Blood Pressure O2 Sat by Pulse Oximetry General appearance: Present: no acute distress, well-nourished - EENT Eyes: PERRL, EOM intact ENT: hearing intact, clear oral mucosa Ears: bilateral: normal - Neck Neck: supple, normal ROM - Respiratory Respiratory effort: normal Respiratory: bilateral: CTA - Breasts Breasts: normal - Cardiovascular Heart rate: 79 Rhythm: regular Heart Sounds: Present: S1 & S2. Absent: gallop, rub Extremities: no ischemia, pulses intact, No edema, normal color, Full ROM, abnormal (Cellulitis LLE) - Gastrointestinal General gastrointestinal: Present: soft, non-tender, non-distended, normal bowel sounds - Genitourinary Male genitourinary: normal - Integumentary Integumentary: clear, warm, dry - Musculoskeletal Musculoskeletal: 1, strength equal bilaterally - Neurologic Neurologic: moves all extremities - Psychiatric Psychiatric: memory intact, appropriate mood/affect, intact judgment & insight - Labs CBC & Chem 7: 03/08/18 16:09 03/08/18 16:09 Labs: Abnormal lab results 03/11/18 03/11/18 03/12/18 Range/Units 16:13 21:43 07:57 POC Glucose 175 H 196 H 161 H (70-105) 03/12/18 Range/Units 11:20 POC Glucose 114 H (70-105)
== END 2018-03-12 15:25 | disposition home or self-care (01) | DRG 603 ==
LOC: ED 15:20 → 2B-ACE 21:35
PROVIDERS: ADMIT Internal Medicine; ATTEND Internal Medicine
DX: L03.116 Cellulitis of left lower limb (principal); Z68.41 Body mass index [BMI] 40.0-44.9, adult; E11.9 Type 2 diabetes mellitus without complications; E66.01 Morbid (severe) obesity due to excess calories; Z88.8 Allergy status to other drugs, medicaments and biological substances; Z79.4 Long term (current) use of insulin; Z86.73 Personal history of transient ischemic attack (TIA), and cerebral infarction without residual deficits; K21.9 Gastro-esophageal reflux disease without esophagitis; F32.9 Major depressive disorder, single episode, unspecified; Z95.0 Presence of cardiac pacemaker; I11.0 Hypertensive heart disease with heart failure; I50.9 Heart failure, unspecified; Z90.49 Acquired absence of other specified parts of digestive tract; I48.0 Paroxysmal atrial fibrillation; I87.8 Other specified disorders of veins
CPT/HCPCS: 36415; 71046; 80048; 80074; 81001; 82140; 82962; 83735; 84484; 85025; 85379; 85610; 85730; 87040; 87076; 87086; 87116; 87186; 93005; 93010; 99285; A9270-GY; J0690; J1815; J2020; J2270; J7050

== ENCOUNTER 2018-03-16 08:12 | Outpatient (CLI) | payer MEDICARE ==
[~2018-03-16 08:12] MED LIST: ACTICIN TP SCH; AMLODIPINE PO SCH; ATARAX PO PRN; BENADRYL PO SCH; BUSPAR PO SCH; CATAPRES-TTS PATCH TD SCH; COREG PO SCH; DESYREL PO SCH; ELIQUIS PO SCH; GLUCOPHAGE PO SCH; HALFPRIN EC PO SCH; HEPARIN SUB-Q SCH; HumaLOG SUB-Q SCH; INSULIN DETEMIR 25 UNIT SUB-Q SCH; LANTUS SUB-Q SCH; LASIX PO SCH; LEXAPRO PO SCH; MORPHINE IV PRN; NON-FORMULARY (Pravastatin Sodium [Pravastatin] 40 MG) PO SCH; PEPCID PO SCH; PROTONIX PO SCH; QUESTRAN PO PRN; REGLAN IV PRN; SODIUM CHLORIDE FLUSH SYRINGE 10 ML IV PRN; SODIUM CHLORIDE FLUSH SYRINGE 10 ML IV SCH; TRIAMCINOLONE ACETONIDE TP SCH; TYLENOL PO PRN; UNASYN/NS 3 GM/100 ML 3 GM/100 ML BAG IV SCH; VALSARTAN PO SCH; ZOFRAN IV PRN; [UNRECOGNIZED DRUG - OTHER] MC SCH
== END 2018-03-16 08:13 | disposition home or self-care (01) ==
LOC: WOUND 08:12
PROVIDERS: ATTEND Surgery
DX: L03.116 Cellulitis of left lower limb (principal); I11.0 Hypertensive heart disease with heart failure; I50.9 Heart failure, unspecified; F32.9 Major depressive disorder, single episode, unspecified; Z95.0 Presence of cardiac pacemaker; Z87.891 Personal history of nicotine dependence
CPT/HCPCS: 29580; G0463; J1815; J2765

== ENCOUNTER 2018-03-23 10:33 | Outpatient (CLI) | payer MEDICARE | END 2018-03-23 10:34 | disposition home or self-care (01) | LOC: WOUND 10:33 | PROVIDERS: ATTEND Surgery | DX: L03.116 Cellulitis of left lower limb (principal); E11.9 Type 2 diabetes mellitus without complications; F32.9 Major depressive disorder, single episode, unspecified; I11.0 Hypertensive heart disease with heart failure; I50.9 Heart failure, unspecified; Z95.0 Presence of cardiac pacemaker; Z87.891 Personal history of nicotine dependence | CPT/HCPCS: 29580 ==